=== PATIENT | female | born 1990 | race Hispanic/Latino ===

== ENCOUNTER 2024-07-27 10:01 | Emergency (ER) | payer SELFPAY ==
--- OUTSIDE RECORDS SUMMARY | 2024-07-27 10:05 | XMS REPORT | Continuity of Care Document ---
Author Name Unknown Address [address] [facility] [address] [place] [address] [facility] Address [address] [facility] [address] [place] [address] Care Team Providers Care Tipple Repairer Name Role Phone HIRA RANDHAWA Primary Care Physician Unavailab KATIA Rae Attending Clinician Unavailable KATIA ANDERSEN Attending Clinician Unavailable ANDREA ODELL Attending Clinician Unavailable Andrea Odell DO Attending Clinician [phone] LEONOR IVY Attending Clinician UnavailLeonor Olivo Attending Clinician [phone] LU GARZA Attending Clinician Unavailable Jose Liu MD Attending Clinician [phone] Lu Laura Attending Clinician [phone] Doctor Unassigned, [place] Attending Clinician U GAVI Levy Attending Clinician Unavaila ble Gavi Correia Attending Clinician [phone] PAPI DAVALOS Attending Clinician Unavailable DR ALEKSANDRA MANCILLA Attending Clinician UnavailTOBY Woo Attending Clinician Unavailable KATIA ANDERSEN Admitting Clinician Unavailable ANDREA ODELL Admitting Clinician Unavailable LEONOR IVY Admitting Clinician UnavailPAPI Meza Admitting Clinician Unavailable DR ALEKSANDRA MANCILLA Admitting Clinician UnavailTOBY Woo Admitting Clinician Unavailable Payers Payer Name Policy Type Policy Number Effective Date Expirati on Date Source [facility] [id number] 2022 00:00:00 [id number] 1960 00:00:00 Problems Condition Name Condition Details Condition Category Status Onset Date Resolution Date Last Treatment Date Treating Clinician Comments Source No known active problems No known active problems Disease [facility] Allergies, Adverse Reactions, Alerts Allergy Name Allergy Type Status Severity Reaction(s) Onset Date Inactive Date Treating Clinician Comments Source No Known Allergie s DA Active U 05-30 00:00: 00 [facility] No Known Drug Allergie s DA Active [facility] (LUF/LI V/SA) NO KNOWN ALLERGIE S Drug Class Active [facility] Social History Social Habit Start Date Stop Date Quantity Comments Source Sexual orientation [facility] Exposure to SARS-CoV-2 (event) 2022-04-29 00:00:00 2022-05-09 09:21:00 Not sure [facility] Sex assigned at 1990 00:00:00 1990 00:00:00 [facility] Smoking Status Start Date Stop Date Source Never sm[facility] (LUF/BILLY/SA) Tobacco smoking consumption unknown [facility] Medications Ordered Medication Name Filled Medication Name Start Date Stop Date Current Medication? Ordering Clinician Indication Dosage Frequency Signature (SIG) Comments Components Source HYDROcodone -acetaminop hen (NORCO 5) 5-325 mg tablet 1 tablet 06-16 04:15: 00 06-16 04:12 :00 No 1{tbl} 1 tablet, Oral, ONCE, 1 dose, On Deysi 06/15/24 at 2315, BETO [facility] iopamidol (ISOVUE 370-500 mL) injection 100 mL 06-16 03:45: 00 06-16 03:45 :00 No [id number] 100mL 100 mL, Intravenou s, ONCE, 1 dose, On Wed06/15/24 at 2245, Routine [facility] ketorolac (TORADOL) injection 30 mg 06-16 02:45: 00 06-16 02:12 :00 No 30mg 30 mg, Slow IV Push, ONCE NOW, 1 dose, On Deysi 06/15/24 at 2145, Routine [facility] NaCl 0.9% (NS) bolus infusion 1,000 mL 06-16 02:45: 00 06-16 04:08 :00 No 1000mL at 999 mL/hr, 1,000 mL, IV Infusion, ONCE, 1 dose, On Deysi 06/15/24 at 2145, BETO [facility] ketorolac 10 mg tablet 06-15 00:00: 00 Yes [id number] 9102 10mg Take 1 tablet by mouth every 6 (six) hours as needed for Pain (scale 4-6). [facility] cyclobenzap rine 10 mg tablet 06-15 00:00: 00 Yes [id number] 9102 10mg Take 1 tablet by mouth 2 (two) times daily as needed for Muscle Spasms. [facility] azithromyci n 250 mg tablet 12-22 00:00: 00 Yes [id number] 250mg Take 1 tablet by mouth in the morning. [facility] methylPREDN ISolone (MEDROL, CASH,) 4 mg tablets 12-22 00:00: 00 Yes [id number] Take by mouth SEE-INSTRU CTIONS. follow package directions [facility] ketorolac (TORADOL) injection 30 mg 12-02 00:45: 00 12-02 01:25 :00 No 30mg 30 mg, Intramuscu lar, ONCE, 1 dose, On Wed12/01/23 at 1845, Routine [facility] HYDROcodone -acetaminop hen (NORCO 5) 5-325 mg tablet 1 tablet 12-02 00:30: 00 12-02 01:23 :00 No 1{tbl} 1 tablet, Oral, ONCE, 1 dose, On Wed12/01/23 at 1830, Routine [facility] ibuprofen 600 mg tablet 12-01 00:00: 00 Yes [id number] 3 600mg Take 1 tablet by mouth every 6 (six) hours as needed for Pain (scale 4-6). [facility] traMADoL 50 mg tablet 12-01 00:00: 00 Yes [id number] 50mg Take 1 tablet by mouth every 6 (six) hours as needed for Pain (scale 7-10). Indication s: acute pain [facility] predniSONE 20 mg tablet 05-10 00:00: 00 05-16 04:59 :00 No [id number] 40mg Take 2 tablets by mouth daily for [address] [facility] methocarbam oL (ROBAXIN) tablet 1,000 mg 05-09 16:30: 00 05-09 15:38 :00 No 1000mg 1,000 mg, Oral, ONCE, 1 dose, On 05/09/22 at 1130, BETO [facility] dexamethaso ne sod phos PF injection 10 mg 05-09 16:30: 00 05-09 15:38 :00 No 10mg 10 mg, Intramuscu lar, ONCE, 1 dose, On 05/09/22 at 1130, [address] [facility] ketorolac (TORADOL) injection 60 mg 05-09 16:30: 00 05-09 15:38 :00 No 60mg 60 mg, Intramuscu lar, ONCE, 1 dose, On 05/09/22 at 1130, BETO [facility] ibuprofen 800 mg tablet 05-09 00:00: 00 Yes [id number] 800mg Take 1 tablet by mouth every 8 (eight) hours as needed for Pain (scale 4-6). [facility] methocarbam oL 750 mg tablet 05-09 00:00: 00 Yes [id number] 750mg Take 1 tablet by mouth 4 (four) times daily as needed for Other (muscle spasm). [facility] ketorolac (TORADOL) injection 30 mg 03-04 05:00: 00 03-05 04:59 :00 No 30mg 30 mg, Intramuscu lar, Q6H, 4 doses, First dose on Wed03/04/22 at 0000, Last dose on Wed03/04/22 at 1800, Routine [facility] HYDROcodone -acetaminop hen (NORCO 5) 5-325 mg tablet 1 tablet 03-04 01:00: 00 03-04 00:16 :00 No 1{tbl} 1 tablet, Oral, ONCE, 1 dose, On Wed03/03/22 at 2000, BETO [facility] naproxen 500 mg tablet 03-03 00:00: 00 Yes [id number] 500mg Take 1 tablet by mouth every 12 (twelve) hours as needed for Pain (scale 4-6). [facility] traMADoL-ac etaminophen (ULTRACET) 37.5-325 mg per tablet 03-03 00:00: 00 03-11 04:59 :00 No [id number] 1{tbl} Take 1 tablet by mouth every 6 (six) hours as needed for Pain for up to 7 days. Indication s: acute pain [facility] ibuprofen 800 mg tablet 07-25 00:00: 00 Yes 800mg Take 1 tablet by mouth every 8 (eight) hours as needed for Temp > 38.5 C (PAIN). [facility] amoxicillin 500 mg capsule 07-25 00:00: 00 Yes 500mg Take 1 capsule by mouth 3 (three) times daily. [facility] neomycin-po lymyxin-hyd rocortisone 3.5-10,000- 1 mg/mL-unit/ mL-% otic susp 2-15 00:00: 00 Yes 3[drp] Place 3 Drops in left ear 4 (four) times daily. [facility] traMADOL (ULTRAM) 50 mg tablet 01-06 00:00: 00 Yes 50mg Take 1 tablet by mouth every 6 (six) hours as needed for Pain (scale 4-6). [facility] amoxicillin 875 MG / clavulanate 125 MG Oral Tablet amoxicillin 875 MG / clavulanate 125 MG Oral Tablet Yes [address] [facility] (LUF/LI V/SA) azithromyci n 250 mg tablet azithromyci n 250 mg tablet Yes [address] [facility] (LUF/LI V/SA) bromphenira mine maleate 0.4 MG/ML / dextrometho rphan hydrobromid e 2 MG/ML / pseudoephed rine hydrochlori de 6 MG/ML Oral Solution bromphenira mine maleate 0.4 MG/ML / dextrometho rphan hydrobromid e 2 MG/ML / pseudoephed rine hydrochlori de 6 MG/ML Oral Solution Yes 7.5mL Q5.00H [facility] (LUF/LI V/SA) prednisone 10 mg tablets in a dose pack prednisone 10 mg tablets in a dose pack Yes [address] [facility] (LUF/LI V/SA) Vital Signs Vital Name Observation Time Observation Value Comments S ource Systolic blood pressure 2024-06-16 04:15:00 161 mm[Hg] [facility] Diastolic blood pressure 2024-06-16 04:15:00 99 mm[Hg] [facility] Heart rate 2024-06-16 04:15:00 89 /min [facility] Oxygen saturation in Arterial blood by Pulse oximetry 2024-06-16 04:15:00 98 /min [facility] Body temperature 2024-06-16 03:32:00 36.89 Sanna [facility] Respiratory rate 2024-06-16 03:32:00 16 /min [facility] Body height 2024-06-16 01:12:00 157.5 cm [facility] Body weight 2024-06-16 01:12:00 104.327 kg [facility] BMI 2024-06-16 01:12:00 42.07 kg/m2 [facility] Systolic blood pressure 2023-12-22 22:00:00 167 mm[Hg] [facility] Diastolic blood pressure 2023-12-22 22:00:00 90 mm[Hg] [facility] Heart rate 2023-12-22 22:00:00 105 /min [facility] Body temperature 2023-12-22 22:00:00 37.11 Sanna [facility] Respiratory rate 2023-12-22 22:00:00 18 /min [facility] Body height 2023-12-22 22:00:00 157.5 cm [facility] Body weight 2023-12-22 22:00:00 106.595 kg [facility] BMI 2023-12-22 22:00:00 42.98 kg/m2 [facility] Oxygen saturation in Arterial blood by Pulse oximetry 2023-12-22 22:00:00 100 /min [facility] Systolic blood pressure 2023-12-02 01:59:37 142 mm[Hg] [facility] Diastolic blood pressure 2023-12-02 01:59:37 94 mm[Hg] [facility] Heart rate 2023-12-02 01:59:37 104 /min [facility] Body temperature 2023-12-02 01:59:37 37 Sanna [facility] Respiratory rate 2023-12-02 01:59:37 16 /min [facility] Oxygen saturation in Arterial blood by Pulse oximetry 2023-12-02 01:59:37 99 /min [facility] Body height 2023-12-01 23:07:00 157.5 cm [facility] Body weight 2023-12-01 23:07:00 107.729 kg [facility] BMI 2023-12-01 23:07:00 43.44 kg/m2 [facility] Systolic blood pressure 2022-05-09 14:22:00 157 mm[Hg] [facility] Diastolic blood pressure 2022-05-09 14:22:00 99 mm[Hg] [facility] Heart rate 2022-05-09 14:22:00 97 /min [facility] Body temperature 2022-05-09 14:22:00 36.94 Sanna [facility] Respiratory rate 2022-05-09 14:22:00 18 /min [facility] Body height 2022-05-09 14:22:00 160 cm [facility] Body weight 2022-05-09 14:22:00 104.327 kg [facility] BMI 2022-05-09 14:22:00 40.74 kg/m2 [facility] Oxygen saturation in Arterial blood by Pulse oximetry 2022-05-09 14:22:00 97 /min [facility] Systolic blood pressure 2022-03-04 00:15:10 138 mm[Hg] [facility] Diastolic blood pressure 2022-03-04 00:15:10 92 mm[Hg] [facility] Heart rate 2022-03-04 00:15:10 107 /min [facility] Respiratory rate 2022-03-04 00:15:10 18 /min [facility] Oxygen saturation in Arterial blood by Pulse oximetry 2022-03-04 00:15:10 98 /min [facility] Body temperature 2022-03-03 23:40:00 37.61 Sanna [facility] Body height 2022-03-03 23:40:00 160 cm [facility] Body weight 2022-03-03 23:40:00 99.791 kg [facility] BMI 2022-03-03 23:40:00 38.97 kg/m2 [facility] Height 2022-02-03 23:24:00 160.02 CM Weight 2022-02-03 23:24:00 100.69 KG Height 2021-11-11 13:42:00 160.02 CM Weight 2021-11-11 13:42:00 104.32 KG Height 2021-10-12 16:19:00 165.1 CM Weight 2021-10-12 16:19:00 95.25 KG Height 2021-08-17 14:59:00 157.48 CM Weight 2021-08-17 14:59:00 105.6 KG Height 2021-06-12 11:49:00 157.48 CM Weight 2021-06-12 11:49:00 104.32 KG Body Temperature 2022-02-03 23:24:00 99.2 [degF] [facility] (LUF/BILLY/SA) Pulse Rate 2022-02-03 23:24:00 82 /min [facility] S [facility] (LUF/BILLY/SA) Respiratory Rate 2022-02-03 23:24:00 20 /min [facility] (LUF/BILLY/SA) O2% BldC Oximetry 2022-02-03 23:24:00 98 % [facility] (LUF/BILLY/SA) BP Systolic 2022-02-03 23:24:00 163 mm[Hg] [facility] (LUF/BILLY/SA) BP Diastolic 2022-02-03 23:24:00 100 mm[Hg] [facility] (LUF/BILLY/SA) Height 2022-02-03 23:24:00 63 [in_i] [facility] S [facility] (LUF/BILLY/SA) Weight 2022-02-03 23:24:00 222 [lb_av] [facility] (LUF/BILLY/SA) BMI (Body Mass Index) 2022-02-03 23:24:00 39.3 kg/m2 [facility] (LUF/BILLY/SA) Body Temperature 2021-11-11 13:42:00 98.1 [degF] [facility] (LUF/BILLY/SA) Pulse Rate 2021-11-11 13:42:00 90 /min [facility] S t [facility] (LUF/BILLY/SA) Respiratory Rate 2021-11-11 13:42:00 18 /min [facility] (LUF/BILLY/SA) O2% BldC Oximetry 2021-11-11 13:42:00 98 % [facility] (LUF/BILLY/SA) BP Systolic 2021-11-11 13:42:00 147 mm[Hg] [facility] (LUF/BILLY/SA) BP Diastolic 2021-11-11 13:42:00 94 mm[Hg] [facility] (LUF/BILLY/SA) Height 2021-11-11 13:42:00 63 [in_i] [facility] (LUF/BILLY/SA) Weight 2021-11-11 13:42:00 104.32 kg [facility] (LUF/BILLY/SA) BMI (Body Mass Index) 2021-11-11 13:42:00 40.7 kg/m2 [facility] (LUF/BILLY/SA) Body Temperature 2021-10-12 16:19:00 98 [degF] [facility] (LUF/BILLY/SA) Pulse Rate 2021-10-12 16:19:00 78 /min [facility] (LUF/BILLY/SA) Respiratory Rate 2021-10-12 16:19:00 18 /min [facility] (LUF/BILLY/SA) O2% BldC Oximetry 2021-10-12 16:19:00 98 % [facility] (LUF/BILLY/SA) Height 2021-10-12 16:19:00 65 [in_i] [facility] (LUF/BILLY/SA) Weight 2021-10-12 16:19:00 210 [lb_av] [facility] (LUF/BILLY/SA) BMI (Body Mass Index) 2021-10-12 16:19:00 34.9 kg/m2 [facility] (LUF/BILLY/SA) Pulse Rate 2021-08-17 16:31:00 73 /min [facility] (LUF/BILLY/SA) Respiratory Rate 2021-08-17 16:31:00 18 /min [facility] (LUF/BILLY/SA) O2% BldC Oximetry 2021-08-17 16:31:00 99 % [facility] (LUF/BILLY/SA) BP Systolic 2021-08-17 16:31:00 122 mm[Hg] [facility] (LUF/BILLY/SA) BP Diastolic 2021-08-17 16:31:00 84 mm[Hg] [facility] (LUF/BILLY/SA) Body Temperature 2021-08-17 14:59:00 98.2 [degF] [facility] (LUF/BILLY/SA) Height 2021-08-17 14:59:00 62 [in_i] [facility] Aida [facility] (LUF/BILLY/SA) Weight 2021-08-17 14:59:00 105.6 kg [facility] (LUF/BILLY/SA) BMI (Body Mass Index) 2021-08-17 14:59:00 42.8 kg/m2 [facility] (LUF/BILLY/SA) Body Temperature 2021-06-12 11:49:00 97.9 [degF] [facility] (F/BILLY/SA) Pulse Rate 2021-06-12 11:49:00 102 /min [facility] (F/BILLY/SA) Respiratory Rate 2021-06-12 11:49:00 20 /min [facility] (F/BILLY/SA) O2% BldC Oximetry 2021-06-12 11:49:00 100 % [facility] (LUF/BILLY/SA) BP Systolic 2021-06-12 11:49:00 129 mm[Hg] [facility] (F/BILLY/SA) BP Diastolic 2021-06-12 11:49:00 93 mm[Hg] [facility] (F/BILLY/SA) Height 2021-06-12 11:49:00 62 [in_i] [facility] Aida [facility] (F/BILLY/SA) Weight 2021-06-12 11:49:00 230 [lb_av] [facility] (F/BILLY/SA) BMI (Body Mass Index) 2021-06-12 11:49:00 42.3 kg/m2 [facility] (F/BILLY/SA) Procedures Procedure Date / Time Performed Performing Clinicia n Source POCT TEST 2024-06-16 02:12:00 Katia Andersen [facility] HEPATIC FUNCTION PANEL (11901) (ALB,T.PRO,BILI T,BU/BC,ALT,AST,ALK PHOS) 2024-06-16 02:09:00 Katia Andersen [facility] BASIC METABOLIC PANEL (NA, K, CL, CO2, GLUCOSE, BUN, CREATININE, CA) 2024-06-16 02:09:00 Katia Andersen [facility] CBC WITH DIFF 2024-06-16 02:09:00 [facility] 2024-06-16 02:09:00 [facility] L[facility] 2023-12-22 22:56:00 Andrea Odell [facility] MAGNESIUM 2023-12-22 22:56:00 Singer [facility] TROPONIN I 2023-12-22 22:56:00 Singer Andrea [facility] COMP. METABOLIC PANEL (13710) 2023-12-22 22:56:00 Singer Andrea [facility] CBC WITH DIFF 2023-12-22 22:56:00 Singer [facility] N-TERMINAL PRO-BNP 2023-12-22 22:56:00 Singer [facility] CONSENT/REFUSAL FOR DIAGNOSIS AND TREATMENT 2023-12-22 21:52:05 Doctor Unassigned, [place] [facility] POCT TEST 2023-12-02 01:22:00 Chris Ivy [facility] ASSIGNMENT OF BENEFITS 2023-12-02 00:37:04 Docto r Unassigned, [place] [facility] XR KNEE <3 VW RIGHT 2023-12-02 00:37:00 Chris Ivy [facility] CONSENT/REFUSAL FOR DIAGNOSIS AND TREATMENT 2023-12-01 22:58:09 Doctor Unassigned, [place] [facility] CONSENT/REFUSAL FOR DIAGNOSIS AND TREATMENT 2022-05-09 14:04:54 Doctor Unassigned, [place] [facility] NOTICE OF PRIVACY PRACTICES 2022-03-03 23:32:43 Doctor Unassigned, [place] [facility] CONSENT/REFUSAL FOR DIAGNOSIS AND TREATMENT 2022-03-03 23:32:31 Doctor Unassigned, [place] [facility] Encounters Start Date/Time End Date/Time Encounter Type Admission Type Attending [facility] Care Facility Care Department Encounter ID Source 2024-06-15 20:14:00 2024-06-15 23:35:00 Emergency KATIA ROSAS ERICCA [facility] ERT [id number] [facility] 2024-06-15 20:14:00 2024-06-15 23:35:00 Emergency Katia Andersen [facility] [id number] [id number] [facility] 2023-12-22 16:08:00 2023-12-22 18:13:00 Emergency ANDREA AMATO [facility] ERT [id number] [facility] 2023-12-22 16:08:00 2023-12-22 18:13:00 Emergency Andrea Odell [facility] [id number] [id number] [facility] 2023-12-01 17:08:00 2023-12-01 20:10:00 Emergency X LEONOR IVY [facility] ERT [id number] [facility] 2023-12-01 17:08:00 2023-12-01 20:10:00 Emergency Leonor Ivy [facility] [id number] [id number] [facility] 2022-05-09 09:23:00 2022-05-09 11:06:00 Emergency LU DUENAS [facility] ERT [id number] [facility] 2022-05-09 09:23:00 2022-05-09 11:06:00 Emergency Jose Liu Roxanne [facility] [id number] [id number] [id number] [facility] 2022-05-09 00:00:00 2022-05-09 00:00:00 Orders Only Doctor Unassigned, [place] [facility] [id number] [id number] [id number] [facility] 2022-03-03 18:41:00 2022-03-03 19:36:00 [facility] [id number] [facility] 2022-03-03 18:41:00 2022-03-03 19:36:00 [facility] [id number] [id number] [id number] [facility] 2022-02-03 23:10:00 2022-02-04 00:45:00 ACUTE UP RESPIRATOR Y INFECTION UNS 1 [facility] [id number] [facility] (LUF/LI V/SA) 2022-02-03 00:00:00 2022-02-03 00:00:00 Inpatient [facility], [address], [place], [place] [id number] [place] [address] [id number] [facility] (LUF/LI V/SA) 2022-02-03 00:00:00 2022-02-03 00:00:00 Inpatient [facility] N, [address], [place] [address] [facility] [id number] [facility] (LUF/LI V/SA) 2021-11-11 13:29:00 2021-11-11 14:20:00 Emergency 1 ALEKSANDRA MANCILLA [facility] [id number] [facility] (LUF/LI V/SA) 2021-11-11 00:00:00 2021-11-11 00:00:00 Inpatient [facility] [address], [address], [place] [id number] [place] [address] [id number] [facility] (LUF/LI V/SA) 2021-10-12 15:53:00 2021-10-12 17:18:00 STRAIN MUSC FASC TENDON LW BACK INT [facility] Jad, [address], [facility], [id number] [facility] (LUF/LI V/SA) 2021-10-12 00:00:00 2021-10-12 00:00:00 Inpatient [facility] [address], [address], [address] [id number] [facility] (LUF/LI V/SA) 2021-10-12 00:00:00 2021-10-12 00:00:00 Inpatient [facility] [address], [address], [address] [id number] [facility] (LUF/LI V/SA) 2021-10-12 00:00:00 2021-10-12 00:00:00 Inpatient [facility] [address], [address], [address] [id number] [facility] (LUF/LI V/SA) 2021-08-17 14:52:00 2021-08-17 17:00:00 CONTUSION LOWER BACK PELVIS INITIAL E [facility] GINA Jad, [address], [id number] [facility] (LUF/LI V/SA) 2021-08-17 00:00:00 2021-08-17 00:00:00 Inpatient [facility] [address], [address], [address] [id number] [facility] (LUF/LI V/SA) 2021-08-17 00:00:00 2021-08-17 00:00:00 Inpatient [facility] [address], [address], [address] [id number] [facility] (LUF/LI V/SA) 2021-06-12 11:08:00 2021-06-12 16:13:00 CHRONIC SINUSITIS UNSPECIFIE TOBY CLARK [facility] [address], [address], [address] [id number] [facility] (LUF/LI V/SA) 2021-06-12 00:00:00 2021-06-12 00:00:00 Inpatient [facility] [address], [address], [address] [id number] [facility] (LUF/LI V/SA) 2021-06-12 00:00:00 2021-06-12 00:00:00 Inpatient [facility] [address], [address] [place], [address] [id number] [facility] Reyna Ashley l (LUF/LI V/SA) Results Test Description Test Time Test Comments Results Result Co [facility] (ALB,T.PRO,BILI T,BU/BC,ALT,AST,ALK PHOS)2024-06-16 02:52:08* Test Item Value Reference Range Interpretation Comme nts TOTAL BILI (test code = 5840960667) 0.6 mg/dL 0.1-1.1 BILI UNCON (test code = 7078690376) 0.0 mg/dL 0.1-1.1 L BILI CONJ (test code = [id number]) 0.0 mg/dL 0.0-0.3 T PROTEIN (test code = 5300063363) 8.0 g/dL 6.3-8.2 ALBUMIN (test code = 1176862086) 4.2 g/dL 3.5-5.0 ALK PHOS (test code = 0147953923) 72 U/L 34-122 ALTv (test code = 1742-6) 50 U/L 5-35 H AST(SGOT) (test code = 8977125294) 39 U/L 13-40 Lab Interpretation (test cod e = 71436-3) Abnormal [facility] WITH [id number] 02:36:09* Test Item Value Reference Range Interpretation Comme nts WBC (test code = 6690-2) 15.17 4.30-11.10 H RBC (test code = 789-8) 4.46 3.93-5.25 HGB (test code = 718-7) 12.8 g/dL 11.6-15.0 HCT (test code = 4544-3) 39.0 % 35.7-45.2 MCV (test code = 787-2) 87.4 fL 80.6-95.5 MCH (test code = 785-6) 28.7 pg 25.9-32.8 MCHC (test code = 786-4) 32.8 g/dL 31.6-35.1 RDW-SD (test code = 97853-6) 42.1 fL 39.0-49.9 RDW-CV (test code = 788-0) 13.2 % 12.0-15.5 PLT (test code = 777-3) 379 166-358 H MPV (test code = 25608-8) 9.4 fL 9.5-12.9 L NRBC/100 WBC (test code = 6789182790) 0.0 0.0-10.0 NRBC x10^3 (test code = 2312964008) See_Comment [Automated message] The system which generated this result transmitted reference range: 10*3/?L. The reference range was not used to interpret this result as normal/abnormal. GRAN MAT (NEUT) % (test code = 770-8) 70.8 % IMM GRAN % (test code = 3978120797) 0.70 % LYMPH % (test code = 736-9) 21.0 % MONO % (test code = 5905-5) 5.1 % EOS % (test code = 713-8) 1.9 % BASO % (test code = 706-2) 0.5 % GRAN MAT x10^3(ANC) (test code = 0595764499) 10.74 10*3/uL 1.88-7.09 H IMM GRAN x10^3 (test code = 3605425707) 0.11 10*3/uL 0.00-0.06 H LYMPH x10^3 (test code = 731-0) 3.18 10*3/uL 1.32-3.29 MONO x10^3 (test code = 742-7) 0.77 10*3/uL 0.33-0.92 EOS x10^3 (test code = 711-2) 0.29 10*3/uL 0.03-0.39 BASO x10^3 (test code = 704-7) 0.08 10*3/uL 0.01-0.07 H Lab Interpretation (test code = 23569-7) [id number] 02:12:00* Test Item Value Reference Range Interpretation Comme nts POCT PREG (test code = 1605) Negative On board controls acceptable with C Line (test code = 3574) Yes Lab Interpretation (test cod e = 97157-0) [facility]3 VW [id number] 01:59:38Exam: Left knee, 12/01/2023 6:45 PM. Ordering Physician: LEONOR IVY. History: Left knee pain. Technique: Left knee 2 views Technical Quality: Adequate. Comparison: None. Findings: No acute fracture. No dislocation. No joint effusion. No radiopaque foreignbody. ?Unremarkable soft tissue structures. [facility] [id number] 01:22:00* Test Item Value Reference Range Interpretation Comme nts POCT PREG (test code = 1605) Negative On board controls acceptable with C Line (test code = 3574) Yes POCT PREG LOT # (test code = 3575) [id number] POCT PREG TEST DATE ( test code = 3576) 01/30/2025 Lab Interpretation (test cod e = 76087-1) [facility] [id number] 00:16:00* Test Item Value Reference Range Interpretation Comme nts Flu A Screen (test code = FLUA) Negative Negative N EFFECTIVE 2012 - A method change has occurred. A molecular method for Flu testing will replace the current method. Both Flu A and Flu B will be tested and results will continue to be listed as "Negative or Positive". While this method is more specific in the detection of both strains, confirmatory testing is available upon request. ldh Flu B Screen (test code = FLUB) Negative Negative N EFFECTIVE 2012 - A method change has occurred. A molecular method for Flu testing will replace the current method. Both Flu A and Flu B will be tested and results will continue to be listed as "Negative or Positive". While this method is more specific in the detection of both strains, confirmatory testing is available upon request. ldh STLMLXR CHEST 2 PA [id number] 00:14:29 [facility] ([facility]/[place])Name: REKHA MYLES : 1990 Sex: FEXAMINATION: XR CHEST 2 PA LATERALINDICATION: R07.1: CHEST PAIN ON BREATHINGCOMPARISON: June 12, 2021 radiographFINDINGS:TUBES and LINES: None.LUNGS: Normal lung volumes. Lungs are clear. Noconsolidations.PLEURA: No pleural effusion or pneumothorax.HEART AND MEDIASTINUM: The cardiomediastinal silhouette is unremarkable.BONES AND SOFT TISSUES: No acute osseous lesion. Soft tissues areunremarkable.UPPER ABDOMEN: No free air under the diaphragm.IMPRESSION:No acute thoracic radiographic ab normality.This final report was electronically signed by Dr Maribel Holley 02/04/2022 12:08 AMDictated By: MARIBEL HOLLEYDate: 02/04/2022 00:08STLMLXR LUMBAR SPINE (AP/LATERAL)2021-08-17 16:43:37 [facility] ([facility]/)Name: REKHA MYLES : 1990 Sex: FLumbar Spine Radiographs: multiple viewsHISTORY: [id number]: Traumatic [id number] PARISON: None available.DISCUSSION:There are five non-rib bearing lumbar vertebral bodies.The alignment of the spine is within normal limits.No displaced fracture or compression deformity is identified.Disc Spaces:The disc spaces are well maintained.Facets:The facet joints are unremarkable.IMPRESSION:No acute radiographic abnormality.If symptoms persist or progress, please consider followup studyor furtherevaluation with MRI without IV contrast.This final report was electronically signed by Darwin Shi 08/17/2021 4:38 PMDictated By: DARWIN SHIDate: 08/17/2021 16:38STLMLPREGNANCY TEST, Urine Qualitative 2021-08-17 15:21:00* Test Item Value Reference Range Interpretation Comme nts (Urine) (test code = PREGU) Negative STLMLCORONAVIRUS 2019 CEPHEID [id number] 15:15:00* Test Item Value Reference Range Interpretation Comme nts FT (test code = COVID) Negative (qualifier value) The Cephied SARS-CoV -2 reagent is for in vitro use under FDA Emergency Use Authorization only. For questions regarding your test results, please contact the Coronavirus Call Center at [phone]. IN-HOUSE TESTINGSTLMLXR CHEST AP/PA 1 [id number] 14:40:37 [facility] ([facility]/[place])Name: REKHA MYLES JUANA : 1990 Sex: FExam: AP portable chestDATE OF EXAM: 06/12/2021 2:12 PMINDICATION: CoughThe lungs are clear. The cardiomediastinal silhouette is within normal limits.The bony thorax shows no significant abnormality.Impression:No active cardiopulmonary disease.This final report was electronically signed by Dr Zbigniew Garcia MD :35 PMDictated By: ZBIGNIEW GARCIADate: 06/12/2021 14:35STLMLURINALYSIS WITH [id number] 14:19:00* Test Item Value Reference Range Interpretation Comme nts Color (test code = UCOLR) Yellow Clarity (test code = UCLAR) Hazy Glucose (test code = UGLUC) NEGATIVE NEGATIVE N Bilirubin (test code = UBILI) NEGATIVE NEGATIVE N Ketones (test code = UKET) NEGATIVE NEGATIVE N Specific [place] (test code = USPGR) >=1.030 1.005-1.030 A Blood (test code = UBLD) TRACE-INTACT NEGATIVE A PH (test code = UPH) 5.5 4.5-8.0 A Protein (test code = UPROT) NEGATIVE NEGATIVE N Urobilinogen (test code = U UROB) 0.2 See_Comment N [Automated message] The system which generated this result transmitted reference range: 0.2. The reference range was not used to interpret this result as normal/abnormal. Nitrite (test code = UNITR) NEGATIVE NEGATIVE N Leukocyte Esterase (test code = ULEUK) NEGATIVE NEGATIVE N WBC (test code = WBCUR) 4-6 0-5 A RBC (test code = RBCUR) 0-3 0-5 A Epithial Cells (test code = U EPI) 5-10 0-10 A Mucous (test code = UMUC) Small None Seen A Bacteria (test code = UBACT) Trace None Seen,Trace N Crystals Urine (test code = URCRYS) Moderate Amorphous Urates None Seen A [id number] 14:07:00* Test Item Value Reference Range Interpretation Comme nts Glucose (test code = GLU) 84 mg/dl 75-110 BUN (test code = BUN) 9.0 mg/dl 6.0-17.0 Creatinine (test code = CREA) 0.6 mg/dl 0.4-1.2 Sodium (test code = NA) 136 mmol/l 137-145 L Potassium (test code = K) 4.4 mmol/l 3.5-5.0 Chloride (test code = CL) 104 mmol/l 98-107 CO2 (test code = CO2) 31 mmol/l 22-30 H Calcium (test code = CALC) 8.7 mg/dl 8.4-10.2 EGFR if (test code = EGFRAA) >60 mL/min/1.73m\\ S\\2 EGFR if Non- (test code = EGFRNA) >60 mL/min/1.73m\\ S\\2 Estimated Glomerular Filtration Rate (eGFR) Reference Intervals Decision Points for 18 years and older and average body mass: >= 60 Does not exclude kidney disease. 30 - 59 Suggests moderate chronic kidney disease and indicates the need for further investigation including assessment of proteinuria and cardiovascular factors. < 30 Usually indicates a need for referral for assessment and management of chronic kidney failure. STLMLPREGNANCY TEST, Urine [id number] 13:49:00* Test Item Value Reference Range Interpretation Comme nts (Urine) (test code = PREGU) Negative STLMLCBC WITH AUTO [id number] 13:20:00* Test Item Value Reference Range Interpretation Comme nts WBC (test code = WBC) 9.25 10\\S\\3/ul 4.80-10.80 RBC (test code = RBC) 4.63 10\\S\\6/ul 4.20-5.40 Hemoglobin (test code = HGB) 13.4 gm/dl 12.0-14.0 Hematocrit (test code = HCT) 40.2 % 37.0-47.0 MCV (test code = MCV) 86.8 fL 81.0-99.0 MCH (test code = MCH) 28.9 pg 27.0-31.0 MCHC (test code = MCHC) 33.3 gm/dl 33.0-37.0 RDW (test code = RDWVC) 13.4 % 11.5-14.5 Platelet (test code = PLT) 329 10\\S\\3/ul 130-400 MPV (test code = MPV) 8.9 fL 7.4-10.4 A "NOT MEASURED" RESULTS ARE DISPLAYED WHEN THE INSTRUMENT HAS A SUPPRESSED OR UNREPORTABLE RESULT. THIS WILL MOST OFTEN HAPPEN WITH THE MPV WHEN THERE IS AN ABNORMAL PLATELET DISTRIBUTION DUE TO A CRITICAL LOW VALUE OR PLATELET CLUMPING. THE RDW MAY BE SUPPRESSED IF THERE ARE MULTIPLE PEAKS PRESENT ON THE RBC HISTOGRAM. IN THIS CASE, A MANUAL REVIEW OF THE SLIDE WILL BE PERFORMED, AND RBC MORPHOLOGY WILL BE NOTED ON THE REPORT. NE% (test code = NE) 69.9 % 42.0-75.0 LY% (test code = LY) 17.3 % 13.0-42.0 MO% (test code = MO) 8.2 % 4.0-14.0 EO% (test code = EO) 3.6 % 1.0-5.0 BA% (test code = BA) 0.5 % 0.0-3.0 IG% (test code = IG%) 0.5 % 0.0-0.4 H STLMLPROCALCITONIN (PCT)2019-05-30 17:56:00* Test Item Value Reference Range Interpretation Comme nts PROCALCITONIN (PCT) (test code = PROCAL) 0.05 ng/ml Concentrati on Interpretation (ng/mL) <0.51 Sepsis is not likely. Local bacterial infection is possible. (LOW RISK for progression to Sepsis) 0.51 - 2.00 Sepsis is possible, but other conditions are known to elevate PCT as well. (MODERATE RISK for progression to Sepsis) > 2.00 Sepsis is likely, unless other causes are known. (HIGH RISK for progression to Severe Sepsis or Septic Shock) 10.00 High likelihood of Severe Sepsis or Septic or higher Shock. *Increased PCT levels may not always be related to systemic bacterial infection.*Low PCT levels do not automatically exclude the presence of bacterial infection.*All results should be interpreted taking into account the patients history. PROCALCITONIN (PCT)2019-05-30 17:56:00* Test Item Value Reference Range Interpretation Comme nts PROCALCITONIN (PCT) (test code = PROCAL) 0.05 ng/ml Concentrati on Interpretation (ng/mL) <0.51 Sepsis is not likely. Local bacterial infection is possible. (LOW RISK for progression to Sepsis) 0.51 - 2.00 Sepsis is possible, but other conditions are known to elevate PCT as well. (MODERATE RISK for progression to Sepsis) > 2.00 Sepsis is likely, unless other causes are known. (HIGH RISK for progression to Severe Sepsis or Septic Shock) 10.00 High likelihood of Severe Sepsis or Septic or higher Shock. *Increased PCT levels may not always be related to systemic bacterial infection.*Low PCT levels do not automatically exclude the presence of bacterial infection.*All results should be interpreted taking into account the patients history. LACTIC [id number] 17:41:00* Test Item Value Reference Range Interpretation Comme nts LACTIC ACID (test code = LACT) 1.6 mmol/L 0.4-1.9 N MONO [id number] 17:33:00* Test Item Value Reference Range Interpretation Comme nts MONO SCREEN (test code = MONO) NEGATIVE NEGATIVE - XR CHEST 2 [id number] 17:31:00FAX: Debra Dejesus NP [place]: St: REG Name: REKHA MYLES [facility] : 1990 Age/S: 28/F Chay[address] Reyes Unit #: [id number] Loc: [place] [address] Phys: Debra Dejesus NP Acct: [id number] DisDate: Status: REG ER PHONE #: [phone] Exam Date: 05/30/2019 1719 FAX #: [phone] Reason: fever EXAMS: CPT CODE: [id number] XR CHEST 2 V 90496 REASON FOR EXAM: fever Exam Order Date: 05/30/20194:35 PM Ordering Ramkarishna: Debra Dejesus NP PROCEDURE: - XR CHEST 2 V COMPARISON: FINDINGS: PA and lateral views of the chest show clear lungs without evidence of consolidation. No evidence of effusion. The heart size is within normal limits. Pulmonary vasculatures are unremarkable. The osseous structures are grossly intact. IMPRESSION: No active disease. Electronically Signed by Ramakrishna Barrientos on05/30/2019 at 1739 Reported and signed by: Yannick Barrientos M.D. CC: Debra Dejesus NP Technologist: Avril Isabel) Trnscstephanie Date/Time/By: 05/30/2019 (8988) : By: Sheba Orig Print D/T: S: 05/30/2019 (6156) PAGE 1 Signed Report- XR CHEST 2 [id number] 17:31:00FAX: Debra Dejesus NP [place]: St: REG Name: REKHA MYLES [facility] : 1990 Age/S: 28/F [address] Unit #: [id number] Loc: [place] [address] Phys: Debra Dejesus NP Acct: [id number] Dis Date: Status: REG ER PHONE #: [phone] Exam Date: 05/30/2019 1719 FAX #: [phone] Reason: fever EXAMS: CPT CODE: [id number] XR CHEST 2 V 23557 REASON FOR EXAM: fever Exam Order Date: 05/30/20194:35 PM Ordering MGladys: Debra Dejesus NP PROCEDURE: - XR CHEST 2 V COMPARISON: FINDINGS: PA and lateral views of the chest show clear lungs without evidence of consolidation. No evidence of effusion. The heart size is within normal limits. Pulmonary vasculatures are unremarkable. The osseous structures are grossly intact. IMPRESSION: No active disease. Electronically Signed by Ramakrishna Barrientos on05/30/2019 at 1731 Reported and signed by: Yannick Barrientos M.D. CC: Debra Dejesus NP Technologist: Avril Espinoza (R) Date/Time/By: 05/30/2019 (1735) : By: Sheba Orig Print D/T: S: 05/30/2019 (7076) PAGE 1 Signed Report- XR CHEST 2 [id number] 17:31:00FAX: Debra Dejesus NP [place]: St: REG Name: REKHA MYLES [facility] : 1990 Age/S: 28/F Chayito Reyes Unit #: [id number] Loc: [place] [address] Phys: Debra Dejesus NP Acct: [id number] DisDate: Status: REG ER PHONE #: [phone] Exam Date: 05/30/2019 1719 FAX #: [phone] Reason: fever EXAMS: CPT CODE: [id number] XR CHEST 2 V 43012 REASON FOR EXAM: fever Exam Order Date: 05/30/2019 4:35 PM Ordering MGladys: Debra Dejesus NP PROCEDURE: - XR CHEST 2 V COMPARISON: FINDINGS: PA and lateral views of the chest show clear lungs without evidence of consolidation. No evidence of effusion. The heart size is within normal limits. Pulmonary vasculatures are unremarkable. The osseous struc tures are grossly intact. IMPRESSION: No active disease. at 1731 Reported and signed by: Yannick Barrientos M.D. CC: Debra Dejesus NP Technologist: Avril Sexton(Mariana) Trnscrd Date/Time/By: 05/30/2019 (8209) : By: JuniVTL Orig Print D/T: S: 05/30/2019 (0806) PAGE 1 Signed ReportPOC LACTIC [id number] 17:18:00* Test Item Value Reference Range Interpretation Comme nts POC LACTIC ACID (test code = POCLAC) 1.51 MMOL/L 0.4-2.2 N POC LACTIC [id number] 17:18:00* Test Item Value Reference Range Interpretation Comme nts POC LACTIC ACID (test code = POCLAC) 1.51 MMOL/L 0.4-2.2 N Notes Date/Time Note Provider Source 2024-06-15 23:34:14 Pt given printed and verbal discharge instructions regarding sciatica, abdominal pain, encouraged hydration, Prescriptions provided Pt verbalized understanding of instructions, pt awake alert oriented, resp reg unlabored, skin w/d, color appropriate for race, moves all ext well,pt encouraged to follow up with pcp. Advised to seek medical attention for new/prolonged/worsening of symptoms. No adverse reaction to meds given in ER noted upon discharge PIV d'cd, dressing to site, catheter in tact. Awake, alert oriented, resp reg unlabored, skin w/d, pt leaving amb with steady gait, in no apparent distress. Mary Navarro RN [facility] 2024-06-15 20:11:02 Started with right flank pain that has radiated to abdomen. Pain started earlier today. Denies blood in urine, complains of pain with urination. Saira Green RN [facility] 2023-12-22 18:12:52 PT D/C home. GCS15, VS stable, no ataxia noted. Given two prescriptions and D/C paperwork. S/S relieved at this time. Pt ambulatory with family at time of discharge. Pt educated on musculoskeletal pain, med usage, follow up care, s/s worsening condition. Pt verbalized understanding. PIV removed. 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 Pain is not reproducible. EKG preformed in triage. NTO Williamson RN [facility] 2023-12-01 20:05:00 Pt given printed and verbal discharge instructions regarding acute pain of left knee, encouraged hydration, Prescriptions provided to preferred pharmacy Discussed ibuprofen and to take with food to avoid GI distress. Discussed tramadol side affects and to avoid driving/operating machinery/or engaging in activities requiring alertness while taking. Pt verbalized understanding of instructions, pt awake alert oriented, resp reg unlabored, skin w/d, color appropriate for race, moves all ext well,pt encouraged to follow up with pcp and/or Ortho Advised to seek medical attention for new/prolonged/worsening of symptoms No adverse reaction to meds given in ER noted upon discharge Awake, alert oriented, resp reg unlabored, skin w/d, pt leaving amb with steady gait, in no apparent distress, TRAINER Lizeth Barrientos RN [facility] 2023-12-01 17:06:49 Pt arrived via private car with c/o left knee pain that started today when she bent over at work. NTO Williamson RN [facility] 2019-05-30 16:37:00 [facility] ([facility]) EMERGENCY PROVIDER REPORT REPORT#:[id number] REPORT STATUS: Signed DATE:05/30/19 TIME: 1636 PATIENT: REKHA MYLES UNIT #: [id number] ROOM/BED: AGE: 28 SEX: F PCP PHYS: No Primary or Family Physician SERVICE AUTHOR: Debra Dejesus NP * ALL edits or amendments must be made on the electronic/computer document * HPI-Sore Throat General Confirmed Patient Yes Patient Type New patient Initial Greet Date/Time 05/30/19 1619 PCP No PCP Presentation Chief Complaint Sore throat Hx Obtained From Patient Onset Occurred Days ago Symptom Duration Since onset, Constant Progression since Onset Gradually worsening Context of Onset No sick contacts Location Pharynx, Tonsil R, Tonsil L Quality Painful, Throbbing Severity: Onset Mild Severity: Current Mild, Pain level 5 out of 10 Associated with Reports: Fever. Denies: Chills, Choking, Cough, Dark urine, Ear pain/ache, Headache, Nausea, Neck pain, Rash, Reduced oral intake, Restricted neck movement , Rhinorrhea, Shortness of breath, Swelling, neck, Swelling, tongue, URI symptoms, Vomiting, Weakness. Associated Other Pt denies other symptoms Exacerbated by Drinking, Eating Relieved by Nothing Context Related History Denies: Diabetes mellitus, Mononucleosis, Prior peritons abscess. Immunization Status General All up to date Recent Healthcare No recent doctor visit, No recent hospitalization Similar Sx Previous No Free Text HPI Notes Free Text HPI Notes 28/f presents with c/o sore throat and fever for the past two days. 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 Denies pmh. Ambulatory to exam room in [facility]. Review of Systems ROS Statements All systems rev neg except as marked. Focused Review of Systems Constitutional Reports: Fever. Denies: Chills, Malaise, Weakness - generalized. Ears/Nose/Throat Reports: Sore throat. Denies: Earache bilat, Nasal congestion. Respiratory Denies: Cough, non-productive, Shortness of breath, Wheezing. GI Denies: Abdominal pain, Diarrhea, Nausea, Vomiting. Musculoskeletal Denies: Back pain, Neck pain. Skin Denies: Rash, Swelling. Neurologic Denies: Change LOC, Generalized weakness, Headache, Lightheaded, Numbness, Syncope, Tingling. Past Medical History - Adult Stated Complaint FEVER Allergies Coded Allergies: No Known Allergies (05/30/19) Home Medications Reported Medications No Known Home Medications Review of Nursing Notes Unavailable at this time Pt reports no significant: Past medical history, Past surgical history, Family history, Social history Smoking status for patients 13 years old or older: Never Smoker Physical Exam Vital Signs Vital Signs First Documented: Result Date Time Pulse Ox 97 / 1633 B/P 167/91 / 1633 B/P Mean 116 /09 1633 O2 Delivery Room air / 1633 Temp 38.9 07/09 1633 Pulse 123 07/09 1633 Resp 18 / 1633 Last Documented: Result Date Time Temp 37.6 07/09 1730 Pulse 110 07/09 1730 Resp 16 07/ 1730 Pulse Ox 97 07/09 1633 B/P 167/91 07/09 1633 B/P Mean 116 07/09 1633 O2 Delivery Room air / 1633 Review of Vital Signs Reviewed Basic Physical Exam Basic PE HEAD: Atraumatic/NC, EYES: PERRL, conj clear, EXT: No gross abnormality , SKIN: No rashes, warm/dry, NEURO: alert oriented, NEURO: gross movement NL, PSYCH: NL thought content Focused PE General/Const General/Const Awake, Alert, Well appearing Ears/Nose/Throat Ears/Nose/Throat Airway patent, Mucous membranes moist, No peritonsillar abscess, No pooling of secretions, No trismus Pharynx/Tonsils/Uvula Pharyngeal erythema, Tonsillar erythema R, Tonsillar erythema L, Tonsillar exudate R, Tonsillar exudate L, Tonsillar swelling R, Tonsillar swelling L. Negative: Peritonsil abscess R, Peritonsil abscess L, Trismus present. MS Neck Neck Supple, No meningismus, Full range of motion, No swelling, Non-tender, No masses Resp/Chest Respiratory/Chest Breath sounds NL, Breath sounds = bilat, No respiratory distress, No rales, No rhonchi, No wheezing, No stridor Cardiovascular Cardiovascular Heart rate NL, Regular rhythm, Heart sounds NL, Peripheral circulation NL Abdomen/GI Abdomen/GI Soft, Non-tender, No guarding, No rebound Lymphatic Adenopathy Anterior cervical bilat. Neurologic Neurologic Oriented X3, Speech NL, No motor deficits, No sensory deficits Interpretation Diagnostics Lab Results Interpretation Results Laboratory Tests: 05/30 05/30 05/30 1716 1646 1645 Blood Gas ABG Lactic Acid (0.4 - 2.2 MMOL/L) 1.51 Chemistry Lactic Acid (0.4 - 1.9 mmol/L) 1.6 Procalcitonin (ng/ml) 0.05 Serology Monoscreen (NEGATIVE) NEGATIVE Microbiology: Date/Time Procedure - Status Source Growth 05/30 1640 Blood Culture - RECD BLOOD 05/30 1640 Blood Culture - RECD BLOOD 05/30 1633 Group A Streptococcus Screen (HORACE) - COMP THROAT 05/30 1633 Influenza Virus Type B Antigen - COMP NASAL 05/30 1633 Influenza Virus Type A Antigen - COMP NASAL Recent Impressions: RADIOLOGY - XR CHEST 2 V 05/30 1710 Report Impression - Status: SIGNED Entered: 05/30/2019 1835 IMPRESSION: No active disease. Impression By: Sheba Barrientos M.D. Lab Imaging Statement Laboratory radiographic studies reviewed and considered in the medical decision-making. Point of Care Testing Micro Interpretation Monospot negative, Influenza rapid - neg, Strep rapid - pos Pulse Oximetry Pulse Ox % 97 On: Room air Interpretation Interpreted by me, Pulse oximetry normal Time 1633 Re-Evaluation MDM Free Text MDM Notes Free Text MDM Notes Informed patient of lab/imaging findings. Educated on diagnoses, supportive measures, return precautions and instructions for PCP Fu. Community resources provided for FU. Patient verbalizes understanding and agrees with plan of care. Patient is nontoxic appearing, afebrile, tolerating PO intake with no signs of distress upon dispo. ED Course Medication(s) Ordered Medication(s) Ordered: Anti-Infective Agents Sig/Isma Start time Last Medication Dose Route Stop Time Status Admin Ceftriaxone Sodium 1,000 MG X1ED 05/30 1645 DCD 05/30 Sodium Chloride 10 ML IV 06/13 1644 1646 Vancomycin HCl 1,000 MG X1ED STA 05/30 1634 DC 05/30 Sodium Chloride 250 ML IV 05/30 1733 1651 Central Nervous System Agents Sig/Isma Start time Last Medication Dose Route Stop Time Status Admin Acetaminophen 1,000 MG X1ED STA 05/30 1634 DC / PO 05/30 1635 1654 Electrolytic, Caloric, And Nicole Sig/Isma Start time Last Medication Dose Route Stop Time Status Admin Sodium Chloride 1,000 ML X1ED STA 05/30 1634 DC 05/30 IV 05/30 1733 1651 Patient Discharge Departure Vital Signs/Condition Vital Signs First Documented: Result Date Time Pulse Ox 97 07/09 1633 B/P 167/91 07/09 1633 B/P Mean 116 07/09 1633 O2 Delivery Room air / 1633 Temp 38.9 07/09 1633 Pulse 123 07/09 1633 Resp 18 / 1633 Last Documented: Result Date Time Temp 37.6 07/09 1730 Pulse 110 07/09 1730 Resp 16 07/09 1730 Pulse Ox 97 07/ 1633 B/P 167/91 07/09 1633 B/P Mean 116 /09 1633 O2 Delivery Room air / 1633 All vital signs available at the time of this entry have been reviewed. Condition Improved, Stable Clinical Impression Clinical Impression Primary Impression: Fever Secondary Impressions: Strep pharyngitis Disposition Decision Discharge )( Discharged to Home Yes )( Time 1746 )( Date 05/30/19 Discharge/Care Plan Counseled Regarding Diagnosis, Lab results, Imaging studies, Prescriptions, Need for follow-up, When to return to ED Prescriptions amoxicillin Prescriptions Reviewed Risks, Benefits, Alternative treatment Discharge Note I have spoken with the patient and/or caregivers. I have explained the patient's condition, diagnoses and treatment plan based on the information available to me at this time. I have answered the patient's and/or caregiver's questions and addressed any concerns. The patient and/or caregivers have as good an understanding of the patient's diagnosis, condition and treatment plan as can be expected at this point. The vital signs have been stable. The patient's condition is stable and appropriate for discharge from the emergency department. The patient will pursue further outpatient evaluation with the primary care physician or other designated or consulting physician as outlined in the discharge instructions. The patient and/or caregivers are agreeable to this plan of care and follow-up instructions have been explained in detail. The patient and/or caregivers have received these instructions in written format and have expressed an understanding of the discharge instructions. The patient and/or caregivers are aware that any significant change in condition or worsening of symptoms should prompt an immediate return to this or the closest emergency department or a call to 911. Quality Measures BP F/U for HTN Referred for BP f/u < 4wk Current Medications Attest: Medication review Smoking Cessation Screened, non user at 1903 RPT #:[id number] END OF REPORT [facility] 2019-05-30 16:37:00 [facility] ([facility]) EMERGENCY PROVIDER REPORT REPORT#:[id number] REPORT STATUS: Signed DATE:05/30/19 TIME: 1636 PATIENT: REKHA MYLES UNIT #: [id number] ROOM/BED: AGE: 28 SEX: F PCP PHYS: No Primary or Family Physician SERVICE AUTHOR: Debra Dejesus NP * ALL edits or amendments must be made on the electronic/computer document * Debra Dejesus 05/30/19 1637: HPI-Sore Throat General Confirmed Patient Yes Patient Type New patient PCP No PCP Presentation Chief Complaint Sore throat Hx Obtained From Patient Onset Occurred Days ago Symptom Duration Since onset, Constant Progression since Onset Gradually worsening Context of Onset No sick contacts Location Pharynx, Tonsil R, Tonsil L Quality Painful, Throbbing Severity: Onset Mild Severity: Current Mild, Pain level 5 out of 10 Associated with Reports: Fever. Denies: Chills, Choking, Cough, Dark urine, Ear pain/ache, Headache, Nausea, Neck pain, Rash, Reduced oral intake, Restricted neck movement , Rhinorrhea, Shortness of breath, Swelling, neck, Swelling, tongue, URI symptoms, Vomiting, Weakness. Associated Other Pt denies other symptoms Exacerbated by Drinking, Eating Relieved by Nothing Context Related History Denies: Diabetes mellitus, Mononucleosis, Prior peritons abscess. Immunization Status General All up to date Recent Healthcare No recent doctor visit, No recent hospitalization Similar Sx Previous No Free Text HPI Notes Free Text HPI Notes 28/f presents with c/o sore throat and fever for the past two days. 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 Ambulatory to exam room in [facility]. Review of Systems ROS Statements All systems rev neg except as marked. Focused Review of Systems Constitutional Reports: Fever. Denies: Chills, Malaise, Weakness - generalized. Ears/Nose/Throat Reports: Sore throat. Denies: Earache bilat, Nasal congestion. Respiratory Denies: Cough, non-productive, Shortness of breath, Wheezing. GI Denies: Abdominal pain, Diarrhea, Nausea, Vomiting. Musculoskeletal Denies: Back pain, Neck pain. Skin Denies: Rash, Swelling. Neurologic Denies: Change LOC, Generalized weakness, Headache, Lightheaded, Numbness, Syncope, Tingling. Past Medical History - Adult Stated Complaint FEVER Allergies Coded Allergies: No Known Allergies (05/30/19) Home Medications Reported Medications No Known Home Medications Review of Nursing Notes Unavailable at this time Pt reports no significant: Past medical history, Past surgical history, Family history, Social history Smoking status for patients 13 years old or older: Never Smoker Physical Exam Vital Signs Vital Signs First Documented: Result Date Time Pulse Ox 97 05/30 1633 B/P 167/91 05/30 1633 B/P Mean 116 05/30 1633 O2 Delivery Room air 05/30 1633 Temp 38.9 05/30 1633 Pulse 123 05/30 1633 Resp 18 05/30 1633 Last Documented: Result Date Time Temp 37.6 05/30 1730 Pulse 110 05/30 1730 Resp 16 05/30 1730 Pulse Ox 97 05/30 1633 B/P 167/91 05/30 1633 B/P Mean 116 05/30 1633 O2 Delivery Room air 05/30 1633 Review of Vital Signs Reviewed Basic Physical Exam Basic PE HEAD: Atraumatic/NC, EYES: PERRL, conj clear, EXT: No gross abnormality , SKIN: No rashes, warm/dry, NEURO: alert oriented, NEURO: gross movement NL, PSYCH: NL thought content Focused PE General/Const General/Const Awake, Alert, Well appearing Ears/Nose/Throat Ears/Nose/Throat Airway patent, Mucous membranes moist, No peritonsillar abscess, No pooling of secretions, No trismus Pharynx/Tonsils/Uvula Pharyngeal erythema, Tonsillar erythema R, Tonsillar erythema L, Tonsillar exudate R, Tonsillar exudate L, Tonsillar swelling R, Tonsillar swelling L. Negative: Peritonsil abscess R, Peritonsil abscess L, Trismus present. MS Neck Neck Supple, No meningismus, Full range of motion, No swelling, Non-tender, No masses Resp/Chest Respiratory/Chest Breath sounds NL, Breath sounds = bilat, No respiratory distress, No rales, No rhonchi, No wheezing, No stridor Cardiovascular Cardiovascular Heart rate NL, Regular rhythm, Heart sounds NL, Peripheral circulation NL Abdomen/GI Abdomen/GI Soft, Non-tender, No guarding, No rebound Lymphatic Adenopathy Anterior cervical bilat. Neurologic Neurologic Oriented X3, Speech NL, No motor deficits, No sensory deficits Interpretation Diagnostics Lab Results Interpretation Results Laboratory Tests: 05/30 05/30 05/30 1716 1646 1645 Blood Gas ABG Lactic Acid (0.4 - 2.2 MMOL/L) 1.51 Chemistry Lactic Acid (0.4 - 1.9 mmol/L) 1.6 Procalcitonin (ng/ml) 0.05 Serology Monoscreen (NEGATIVE) NEGATIVE Microbiology: Date/Time Procedure - Status Source Growth 05/30 1640 Blood Culture - RES BLOOD 05/30 1640 Blood Culture - RES BLOOD 05/30 1633 Group A Streptococcus Screen ([facility]) - COMP THROAT 05/30 1633 Influenza Virus Type B Antigen - COMP NASAL 05/30 1633 Influenza Virus Type A Antigen - COMP NASAL Recent Impressions: RADIOLOGY - XR CHEST 2 V 05/30 1710 Report Impression - Status: SIGNED Entered: 05/30/2019 1735 IMPRESSION: No active disease. Impression By: Sheba Barrientos M.D. Lab Imaging Statement Laboratory radiographic studies reviewed and considered in the medical decision-making. Point of Care Testing Micro Interpretation Monospot negative, Influenza rapid - neg, Strep rapid - pos Pulse Oximetry Pulse Ox % 97 On: Room air Interpretation Interpreted by me, Pulse oximetry normal Time 1633 Re-Evaluation MDM Free Text MDM Notes Free Text MDM Notes Informed patient of lab/imaging findings. Educated on diagnoses, supportive measures, return precautions and instructions for PCP Fu. Community resources provided for FU. Patient verbalizes understanding and agrees with plan of care. Patient is nontoxic appearing, afebrile, tolerating PO intake with no signs of distress upon dispo. ED Course Medication(s) Ordered Medication(s) Ordered: Anti-Infective Agents Sig/Isma Start time Last Medication Dose Route Stop Time Status Admin Ceftriaxone Sodium 1,000 MG X1ED 05/30 1645 DCD 05/30 Sodium Chloride 10 ML IV 06/13 1644 1646 Vancomycin HCl 1,000 MG X1ED STA 05/30 1634 DC 05/30 Sodium Chloride 250 ML IV 05/30 1733 1651 Central Nervous System Agents Sig/Isma Start time Last Medication Dose Route Stop Time Status Admin Acetaminophen 1,000 MG X1ED STA 05/30 1634 DC / PO 05/30 1635 1654 Electrolytic, Caloric, And Nicole Sig/Isma Start time Last Medication Dose Route Stop Time Status Admin Sodium Chloride 1,000 ML X1ED STA 05/30 1634 DC 05/30 IV 05/30 1733 1651 Patient Discharge Departure Vital Signs/Condition Vital Signs First Documented: Result Date Time Pulse Ox 97 /09 1633 B/P 167/91 07/09 1633 B/P Mean 116 07/09 1633 O2 Delivery Room air / 1633 Temp 38.9 07/09 1633 Pulse 123 07/09 1633 Resp 18 / 1633 Last Documented: Result Date Time Temp 37.6 07/09 1730 Pulse 110 07/09 1730 Resp 16 07/09 1730 Pulse Ox 97 07/ 1633 B/P 167/91 07/09 1633 B/P Mean 116 /09 1633 O2 Delivery Room air 05/30 1633 All vital signs available at the time of this entry have been reviewed. Condition Improved, Stable Clinical Impression Clinical Impression Primary Impression: Fever Secondary Impressions: Strep pharyngitis Disposition Decision Discharge )( Discharged to Home Yes )( Time 1746 )( Date 05/30/19 Discharge/Care Plan Counseled Regarding Diagnosis, Lab results, Imaging studies, Prescriptions, Need for follow-up, When to return to ED Prescriptions amoxicillin Prescriptions Reviewed Risks, Benefits, Alternative treatment Discharge Note I have spoken with the patient and/or caregivers. I have explained the patient's condition, diagnoses and treatment plan based on the information available to me at this time. I have answered the patient's and/or caregiver's questions and addressed any concerns. The patient and/or caregivers have as good an understanding of the patient's diagnosis, condition and treatment plan as can be expected at this point. The vital signs have been stable. The patient's condition is stable and appropriate for discharge from the emergency department. The patient will pursue further outpatient evaluation with the primary care physician or other designated or consulting physician as outlined in the discharge instructions. The patient and/or caregivers are agreeable to this plan of care and follow-up instructions have been explained in detail. The patient and/or caregivers have received these instructions in written format and have expressed an understanding of the discharge instructions. The patient and/or caregivers are aware that any significant change in condition or worsening of symptoms should prompt an immediate return to this or the closest emergency department or a call to 911. Quality Measures BP F/U for HTN Referred for BP f/u < 4wk Current Medications Attest: Medication review Smoking Cessation Screened, non user Josesito Dodson 06/01/19 1135: HPI-Sore Throat General Initial Greet Date/Time 05/30/19 1619 Physical Exam Vital Signs Vital Signs Interpretation Diagnostics Lab Results Interpretation Results Patient Discharge Departure Vital Signs/Condition Vital Signs Supervising Physician Note MidLv Saw Pt Alone I have reviewed the PA/GRIDDLE COOK's note and plan of care. I was available for consultation as needed at all times during the patient's visit in the emergency department. I agree with the clinical impression, plan and disposition. at 1903 at 1135 RPT #:[id number] END OF REPORT [facility]
[2024-07-27 11:25] LABS: SARS-CoV-2 Antigen CONTROL BLUE LINE VIS/BG OK; SARS-CoV-2 Antigen Rapid Res Negative (Negative)
--- NOTE | 2024-07-27 12:29 | ER ---
Nurse's Notes [facility] Name: Sita Simpson Age: 33 yrs Sex: Female : 1990 Arrival Date: 07/27/2024 Time: 10:01 Bed 17 Private MD: Diagnosis: Upper respiratory infection, viral syndrome Presentation: 07/27 10:20 Chief complaint: Patient states: Pt states began having congestion, cough, sore throat dd2 and runny nose x3 days ago. Coronavirus screen: congestion, cough unrelated to allergies, runny nose, sore throat. Ebola Screen: No symptoms or risks identified at this time. Initial Sepsis Screen: Does the patient meet any 2 criteria? No. Patient's initial sepsis screen is negative. Does the patient have a suspected source of infection? No. Patient's initial sepsis screen is negative. Risk Assessment: Do you want to hurt yourself or someone else? Patient reports no desire to harm self or others. Onset of symptoms is unknown. 10:20 Method Of Arrival: Ambulatory dd2 10:20 Acuity: NAKITA 4 dd2 Triage Assessment: 10:23 General: Appears in no apparent distress. Behavior is calm, cooperative, appropriate dd2 for age. Pain: Complains of pain in throat, ears. 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 - Infectious Disease History:: Denies. - Social history:: Smoking status: Patient denies any tobacco usage or history of. Screenin:13 [facility] ED Fall Risk Assessment (Adult) History of falling in the last 3 months, ld1 including since admission No falls in past 3 months (0 pts) Confusion or Disorientation No (0 pts) Intoxicated or Sedated No (0 pts) Impaired Gait No (0 pts) Mobility Assist Device Used No (0 pt) Altered Elimination No (0 pt) Score/Fall Risk Level 0 - 2 = Low Risk Oriented to surroundings, Maintained a safe environment, Educated pt \T\ family on fall prevention, incl call for assistance when getting out of bed, Assessed \T\ reinforced patient's understanding of fall precautions, Provided non-skid footwear, Hourly rounding (assess needs \T\ fall precautionary measures) done, Used ambulatory aids as needed (educated on \T\ assisted with), Used gait belt as appropriate. Abuse screen: Denies threats or abuse. Denies injuries from another. Nutritional screening: No deficits noted. Tuberculosis screening: No symptoms or risk factors identified. Assessment: 11:12 General: Appears in no apparent distress. comfortable, Behavior is calm, cooperative, ld1 appropriate for age. Pain: Denies pain. Neuro: Level of Consciousness is awake, alert, obeys commands, Oriented to person, place, time, situation, Appropriate for age. Cardiovascular: Capillary refill < 3 seconds Patient's skin is warm and dry. Respiratory: Airway is patent Respiratory effort is even, unlabored. GI: Abdomen is flat, non-distended. : No signs and/or symptoms were reported regarding the genitourinary system. EENT: No signs and/or symptoms were reported regarding the EENT system. Derm: No signs and/or symptoms reported regarding the dermatologic system. Musculoskeletal: No signs and/or symptoms reported regarding the musculoskeletal system. 12:16 Reassessment: Patient appears in no apparent distress at this time. No changes from ld1 previously documented assessment. Patient and/or family updated on plan of care and expected duration. Pain level reassessed. Patient is alert, oriented x 3, equal unlabored respirations, skin warm/dry/pink. Vital Signs: 10:20 BP 149 / 101; Pulse 108; Resp 16; Temp 98.7(O); Pulse Ox 100% ; Weight 102.06 kg; dd2 Height 5 ft. 2 in. ; 11:12 BP 141 / 93; Pulse 96; Resp 18; Pulse Ox 99% on R/A; ld1 12:16 BP 139 / 76; Pulse 99; Resp 18; Pulse Ox 100% on R/A; ld1 10:20 Body Mass Index 41.15 (102.06 kg, 157.48 cm) dd2 ED Course: 10:04 Patient arrived in ED. im 10:08 Marisa Goldsmith MD is Attending Physician. sp3 10:23 Triage completed. dd2 10:23 Arm band placed on right wrist. Patient placed in an exam room, on a stretcher, on dd2 pulse oximetry, Patient notified of wait time. 10:28 Hansa Bronson, RN is Primary Nurse. ld1 11:13 Patient has correct armband on for positive identification. Placed in gown. Bed in low ld1 position. Call light in reach. Side rails up X2. court monitor on. Pulse ox on. NIBP on. Door closed. Noise minimized. 11:13 No provider procedures requiring assistance completed. ld1 12:38 Patient did not have IV access during this emergency room visit. ld1 13:06 CXR XRAY In Process Unspecified. EDMS Administered Medications: No medications were administered Medication: 11:13 VIS not applicable for this client. ld1 Outcome: 12:28 Discharge ordered by . sp3 12:38 Discharged to home ambulatory, ld1 12:38 Condition: stable 12:38 Discharge instructions given to patient, Instructed on discharge instructions, follow up and referral plans. medication usage, Demonstrated understanding of instructions, follow-up care, medications, Prescriptions given X 2, 12:38 Patient left the ED. ld1 Signatures: Dispatcher [employer] EDMS Hansa Bronson, RN RN ld1 Marisa Goldsmith MD MD sp3 Shira Dacosta DIANA RN RN dd2
--- NOTE | 2024-07-27 12:29 | EDPHYS ---
Physician Documentation [facility] Name: Sita Simpson Age: 33 yrs Sex: Female : 1990 Arrival Date: 07/27/2024 Time: 10:01 Bed 17 Private MD: ED Physician Marisa Goldsmith HPI: 07/27 11:11 This 33 yrs old Female presents to ER via Ambulatory with complaints of Flu sp3 Symptoms. 11:11 33-year-old female with no significant past medical history presents with chief sp3 complaint fever, generalized weakness, malaise, cough, congestion for the last 2 to 3 days. Temperature last night subjectively. She denies shortness of breath, chest pain, abdominal pain, syncope, neurological complaints, rash, or any other signs or symptoms on ROS at this time. Possible sick contacts noted at work.. 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 - Infectious Disease History:: Denies. - Social history:: Smoking status: Patient denies any tobacco usage or history of. ROS: 11:11 Constitutional: Negative for fever, chills, and weight loss, Eyes: Negative for injury, sp3 pain, redness, and discharge, Neck: Negative for injury, pain, and swelling, Cardiovascular: Negative for chest pain, palpitations, and edema, Abdomen/GI: Negative for abdominal pain, nausea, vomiting, diarrhea, and constipation, Back: Negative for injury and pain, MS/Extremity: Negative for injury and deformity, Skin: Negative for injury, rash, and discoloration, Neuro: Negative for headache, weakness, numbness, tingling, and seizure, Psych: Negative for depression, anxiety, suicide ideation, homicidal ideation, and hallucinations, Allergy/Immunology: Negative for hives, rash, and allergies, Endocrine: Negative for neck swelling, polydipsia, polyuria, polyphagia, and marked weight changes, 11:11 All other systems are negative, Exam: 11:12 Constitutional: This is a well developed, well nourished patient who is awake, alert, sp3 and in no acute distress. Head/Face: Normocephalic, atraumatic. Eyes: Pupils equal round and reactive to light, extra-ocular motions intact. Lids and lashes normal. Conjunctiva and sclera are non-icteric and not injected. Cornea within normal limits. Periorbital areas with no swelling, redness, or edema. Neck: Trachea midline, no thyromegaly or masses palpated, and no cervical lymphadenopathy. Supple, full range of motion without nuchal rigidity, or vertebral point tenderness. No Meningismus. Chest/axilla: Normal chest wall appearance and motion. Nontender with no deformity. No lesions are appreciated. Cardiovascular: Regular rate and rhythm with a normal S1 and S2. No gallops, murmurs, or rubs. Normal PMI, no JVD. No pulse deficits. Respiratory: Lungs have equal breath sounds bilaterally, clear to auscultation and percussion. No rales, rhonchi or wheezes noted. No increased work of breathing, no retractions or nasal flaring. Abdomen/GI: Soft, non-tender, with normal bowel sounds. No distension or tympany. No guarding or rebound. No evidence of tenderness throughout. Back: No spinal tenderness. No costovertebral tenderness. Full range of motion. Skin: Warm, dry with normal turgor. Normal color with no rashes, no lesions, and no evidence of cellulitis. MS/ Extremity: Pulses equal, no cyanosis. Neurovascular intact. Full, normal range of motion. Neuro: Awake and alert, GCS 15, oriented to person, place, time, and situation. Cranial nerves II-XII grossly intact. Motor strength 5/5 in all extremities. Sensory grossly intact. Cerebellar exam normal. Normal gait. Psych: Awake, alert, with orientation to person, place and time. Behavior, mood, and affect are within normal limits. 11:12 ENT: Rhinorrhea and nasal congestion noted coupled with dry cough.. Vital Signs: 10:20 BP 149 / 101; Pulse 108; Resp 16; Temp 98.7(O); Pulse Ox 100% ; Weight 102.06 kg; dd2 Height 5 ft. 2 in. ; 11:12 BP 141 / 93; Pulse 96; Resp 18; Pulse Ox 99% on R/A; ld1 12:16 BP 139 / 76; Pulse 99; Resp 18; Pulse Ox 100% on R/A; ld1 10:20 Body Mass Index 41.15 (102.06 kg, 157.48 cm) dd2 MDM: 10:08 Patient medically screened. sp3 11:12 Data reviewed: vital signs, nurses notes, lab test result(s), radiologic studies. ED sp3 course: 33-year-old female with upper respiratory infection type symptoms. Differential diagnosis includes URI, bronchitis, pneumonia, COVID-19, influenza, strep pharyngitis, other viral illness, among others. I am not highly suspicious of sepsis, shock, acute coronary syndrome, PE, TAD, or any other critical illness at this time. Disposition pending workup and patient course with probable discharge if workup is negative for anything substantial.. 12:27 ED course: Swabs are negative and chest x-ray is clean. Will place patient on sp3 antitussive agent and NSAID with follow-up to PCP as needed.. 07/27 10:44 Order name: SARS RAPID; Complete Time: 12:26 sp3 07/27 10:44 Order name: Flu; Complete Time: 12:26 sp3 07/27 10:44 Order name: Strep sp3 07/27 11:28 Order name: Throat Culture EDKS 07/27 10:44 Order name: CXR XRAY sp3 Administered Medications: No medications were administered Disposition Summary: 07/27/24 12:28 Discharge Ordered Notes: Location: Home sp3 Condition: Stable sp3 Diagnosis - Upper respiratory infection, viral syndrome sp3 Followup: sp3 - With: Private Physician - When: Upon discharge from the Emergency Department - Reason: Continuance of care Discharge Instructions: - Discharge Summary Sheet sp3 - Upper Respiratory Infection, Adult sp3 Forms: - Medication Reconciliation Form sp3 - Antibiotic Education sp3 - Prescription Opioid Use sp3 - Patient Portal Instructions sp3 - Leadership Thank You Letter sp3 Prescriptions: - Tessalon Perles 100 mg Oral Capsule - take 1 capsule ORAL route every 8 hours As needed; 15 capsule; Refills: 0, sp3 Product Selection Permitted - Diclofenac Sodium 75 mg Oral Tablet Sustained Release - take 1 tablet ORAL route 2 times per day; 30 tablet; Refills: 0, Product sp3 Selection Permitted Signatures: Dispatcher [employer] Marisa Perla MD MD sp3 MADELAINE, REESE, RN RN dd2 Corrections: (The following items were deleted from the chart) 10:45 10:45 Chest Single View+RAD.RAD.BRZ ordered. EDMS EDMS 10:45 10:45 SARS-COV-2 Antigen Rapid+I.LAB.BRZ ordered. EDMS EDMS 10:45 10:45 Influenza Screen (A \T\ B)+BA.LAB.BRZ ordered. EDMS EDMS 10:45 10:45 Group A Streptococcus Rapid Sc+BA.LAB.BRZ ordered. EDMS EDMS
[2024-07-27 12:49] VITALS: TEMP 98.7
[2024-07-27 12:58] VITALS: BP 139/76; O2SAT 100
--- NOTE | 2024-07-27 13:39 | RAD REPORT ---
EXAM DESCRIPTION: Danna Single View07/27/2024 1:04 pm CLINICAL HISTORY: uri / cough COMPARISON: No comparisons TECHNIQUE: Portable AP view of the chest. FINDINGS: Decreased inspiratory effort somewhat limits evaluation. The lungs are clear. No pneumoth orax or effusion. The cardiomediastinal contours are unremarkable. IMPRESSION: No acute cardiopulmonary process.
== END 2024-07-27 12:38 | disposition home or self-care (01) ==
LOC: ER 10:01
DX: J06.9 Acute upper respiratory infection, unspecified (principal); B34.9 Viral infection, unspecified; Z11.52 Encounter for screening for COVID-19
CPT/HCPCS: 36415; 71045; 87070; 87081; 87804; 87811; 99284

== ENCOUNTER 2025-03-12 14:47 | Emergency (ER) | payer OTHER, SELFPAY ==
--- OUTSIDE RECORDS SUMMARY | 2025-03-12 14:52 | XMS REPORT | Continuity of Care Document ---
Author Name Unknown Address [address] [facility] [place] [address] [facility] [place] Address [address] [facility] [place] [address] Care Team Providers Care Health And Safety Representative Name Role Phone HIRA RANDHAWA Primary Care Physician UnavailGLEN Yusuf Attending Clinician Unavailab Sharath DAWKINS, Glen Jain Attending Clinician [phone] BEAR CARDONA Attending Clinician Unavailable BEAR CARDONA Attending Clinician Unavailable Ryan John MD Attending Clinician [phone] Bear Cardona MD Attending Clinician [phone] KATIA ANDERSEN Attending Clinician Unavailable KATIA ANDERSEN Attending Clinician Unavailable WADE ODELL Attending Clinician Unavailable Wade Odell DO Attending Clinician [phone] LEONOR IVY Attending Clinician UnavailLeonor Olivo Attending Clinician [phone] LU GARZA Attending Clinician Unavailable Jose Liu MD Attending Clinician [phone] Hayes PASSENGER BRAKEMANLu Fulton Attending Clinician [phone] Doctor Unassigned, [place] [facility] Attending Clinician U GAVI Levy Attending Clinician Unavaila Gavi Soriano Attending Clinician [phone] PAPI DAVALOS Attending Clinician Unavailable CHARO, DR [place] Attending Clinician UnavailTOBY Woo Attending Clinician Unavailable RYAN JOHN Admitting Clinician Unavailable KATIA ANDERSEN Admitting Clinician Unavailable WADE ODELL Admitting Clinician Unavailable LEONOR IVY Admitting Clinician Unavaila PAPI Conteh Admitting Clinician Unavailable DR ALEKSANDRA MANCILLA Admitting Clinician Unavailab TOBY Mancia Admitting Clinician Unavailable Payers Payer Name Policy Type Policy Number Effective Date Expirati on Date Source [facility] [id number] 2022 00:00:00 [id number] 1960 00:00:00 Problems Condition Name Condition Details Condition Category Status Onset Date Resolution Date Last Treatment Date Treating Clinician Comments Source No known active problems No known active problems Disease [facility] Allergies, Adverse Reactions, Alerts Allergy Name Allergy Type Status Severity Reaction(s) Onset Date Inactive Date Treating Clinician Comments Source No Known Allergie s DA Active U 05-30 00:00: 00 [facility] No Known Drug Allergie s DA Active [facility] l (LUF/LI V/SA) NO KNOWN ALLERGIE S Drug Class Active [facility] Social History Social Habit Start Date Stop Date Quantity Comments Source Sexual orientation 2024-10-12 20:54:02 Homosexual (finding) [facility] Gender identity 2024-02-13 00:58:42 Identifies as [facility] ASSERTION Not Gabi Pradoann [facility] Exposure to SARS-CoV-2 (event) 2022-04-29 00:00:00 2022-05-09 09:21:00 Not sure [facility] Sex assigned at 1990 00:00:00 1990 00:00:00 [facility] Smoking Status Start Date Stop Date Source Never smoker [facility] (LUF/BILLY/SA) Tobacco smoking consumption unknown [facility] c Medications Ordered Medication Name Filled Medication Name Start Date Stop Date Current Medication? Ordering Clinician Indication Dosage Frequency Signature (SIG) Comments Components Source azithromyci n (Zithromax) 250 MG tablet azithromyci n (Zithromax) 250 MG tablet 2023-11 00:00: 00 10-17 23:59 :00 No Take 2 tablets by mouth 1 time each day for 1 day, THEN 1 tablet 1 time each day for 4 days. Gabi Pradoann [facility] iopamidol (ISOVUE 370-500 mL) injection 100 mL 2023-11 01:15: 00 10-11 01:06 :00 No [id number] 100mL 100 mL, Intravenou s, ONCE, 1 dose, On Wed10/10/24 at 1915, Routine [facility] ondansetron 4 mg disintegrat ing tablet 2023-11 00:00: 00 Yes [id number] 4mg Take 1 tablet by mouth every 8 (eight) hours as needed for Nausea and Vomiting (N/V). [facility] HYDROcodone -acetaminop hen (NORCO 5) 5-325 mg tablet 1 tablet 06-16 04:15: 00 06-16 04:12 :00 No 1{tbl} 1 tablet, Oral, ONCE, 1 dose, On Wed06/15/24 at 2315, BETO [facility] iopamidol (ISOVUE 370-500 mL) injection 100 mL 06-16 03:45: 00 06-16 03:45 :00 No [id number] 100mL 100 mL, Intravenou s, ONCE, 1 dose, On Deysi 06/15/24 at 2245, Routine [facility] ketorolac (TORADOL) injection 30 mg 06-16 02:45: 00 06-16 02:12 :00 No 30mg 30 mg, Slow IV Push, ONCE NOW, 1 dose, On Deysi 06/15/24 at 2145, Routine [facility] NaCl 0.9% (NS) bolus infusion 1,000 mL 06-16 02:45: 00 06-16 04:08 :00 No 1000mL at 999 mL/hr, 1,000 mL, IV Infusion, ONCE, 1 dose, On Deysi 06/15/24 at 2145, BETO [facility] ketorolac 10 mg tablet 06-15 00:00: 00 Yes [id number] 9102 10mg Take 1 tablet by mouth every 6 (six) hours as needed for Pain (scale 4-6). [facility] cyclobenzap rine 10 mg tablet 06-15 00:00: 00 Yes [id number] 9102 10mg Take 1 tablet by mouth 2 (two) times daily as needed for Muscle Spasms. [facility] azithromyci n 250 mg tablet 12-22 00:00: 00 Yes [id number] 250mg Take 1 tablet by mouth in the morning. [facility] methylPREDN ISolone (MEDROL, CASH,) 4 mg tablets 12-22 00:00: 00 Yes [id number] Take by mouth SEE-INSTRU CTIONS. follow package directions [facility] ketorolac (TORADOL) injection 30 mg 12-02 00:45: 00 12-02 01:25 :00 No 30mg 30 mg, Intramuscu lar, ONCE, 1 dose, On Wed12/01/23 at 1845, Routine [facility] HYDROcodone -acetaminop hen (NORCO 5) 5-325 mg tablet 1 tablet 12-02 00:30: 00 12-02 01:23 :00 No 1{tbl} 1 tablet, Oral, ONCE, 1 dose, On Wed12/01/23 at 1830, Routine [facility] ibuprofen 600 mg tablet -10 00:00: 00 Yes [id number] 3 600mg Take 1 tablet by mouth every 6 (six) hours as needed for Pain (scale 4-6). [facility] traMADoL 50 mg tablet 12-01 00:00: 00 Yes [id number] 50mg Take 1 tablet by mouth every 6 (six) hours as needed for Pain (scale 7-10). Indication s: acute pain [facility] predniSONE 20 mg tablet 05-10 00:00: 00 05-16 04:59 :00 No [id number] 40mg Take 2 tablets by mouth daily for 5 days. [facility] methocarbam oL (ROBAXIN) tablet 1,000 mg 05-09 16:30: 00 05-09 15:38 :00 No 1000mg 1,000 mg, Oral, ONCE, 1 dose, On 05/09/22 at 1130, BETO [facility] dexamethaso ne sod phos PF injection 10 mg 05-09 16:30: 00 05-09 15:38 :00 No 10mg 10 mg, Intramuscu lar, ONCE, 1 dose, On 05/09/22 at 1130, 1 mL [facility] ketorolac (TORADOL) injection 60 mg 05-09 16:30: 00 05-09 15:38 :00 No 60mg 60 mg, Intramuscu lar, ONCE, 1 dose, On 05/09/22 at 1130, BETO [facility] ibuprofen 800 mg tablet 05-09 00:00: 00 Yes [id number] 800mg Take 1 tablet by mouth every 8 (eight) hours as needed for Pain (scale 4-6). [facility] methocarbam oL 750 mg tablet 05-09 00:00: 00 Yes [id number] 750mg Take 1 tablet by mouth 4 (four) times daily as needed for Other (muscle spasm). [facility] ketorolac (TORADOL) injection 30 mg 03-04 05:00: 00 03-05 04:59 :00 No 30mg 30 mg, Intramuscu lar, Q6H, 4 doses, First dose on Wed03/04/22 at 0000, Last dose on Wed03/04/22 at 1800, Routine [facility] HYDROcodone -acetaminop hen (NORCO 5) 5-325 mg tablet 1 tablet 03-04 01:00: 00 03-04 00:16 :00 No 1{tbl} 1 tablet, Oral, ONCE, 1 dose, On Wed03/03/22 at 2000, BETO [facility] naproxen 500 mg tablet 03-03 00:00: 00 Yes [id number] 500mg Take 1 tablet by mouth every 12 (twelve) hours as needed for Pain (scale 4-6). [facility] traMADoL-ac etaminophen (ULTRACET) 37.5-325 mg per tablet 03-03 00:00: 00 03-11 04:59 :00 No [id number] 1{tbl} Take 1 tablet by mouth every 6 (six) hours as needed for Pain for up to 7 days. Indication s: acute pain [facility] ibuprofen 800 mg tablet 07-25 00:00: 00 Yes 800mg Take 1 tablet by mouth every 8 (eight) hours as needed for Temp > 38.5 C (PAIN). [facility] amoxicillin 500 mg capsule 07-25 00:00: 00 Yes 500mg Take 1 capsule by mouth 3 (three) times daily. [facility] neomycin-po lymyxin-hyd rocortisone 3.5-10,000- 1 mg/mL-unit/ mL-% otic susp 01-06 00:00: 00 Yes 3[drp] Place 3 Drops in left ear 4 (four) times daily. [facility] traMADOL (ULTRAM) 50 mg tablet 01-06 00:00: 00 Yes 50mg Take 1 tablet by mouth every 6 (six) hours as needed for Pain (scale 4-6). [facility] amoxicillin 875 MG / clavulanate 125 MG Oral Tablet amoxicillin 875 MG / clavulanate 125 MG Oral Tablet Yes [address] [facility] l (LUF/LI V/SA) azithromyci n 250 mg tablet azithromyci n 250 mg tablet Yes [address] [facility] bromphenira mine maleate 0.4 MG/ML / dextrometho rphan hydrobromid e 2 MG/ML / pseudoephed rine hydrochlori de 6 MG/ML Oral Solution bromphenira mine maleate 0.4 MG/ML / dextrometho rphan hydrobromid e 2 MG/ML / pseudoephed rine hydrochlori de 6 MG/ML Oral Solution Yes 7.5mL Q5.00H [facility] l (LUF/LI V/SA) prednisone 10 mg tablets in a dose pack prednisone 10 mg tablets in a dose pack Yes 1 [facility] (LUF/LI V/SA) Vital Signs Vital Name Observation Time Observation Value Comments S our Systolic blood pressure 2024-10-12 20:58:00 145 mm[Hg] [facility] Diastolic blood pressure 2024-10-12 20:58:00 76 mm[Hg] [facility] Heart rate 2024-10-12 20:58:00 82 [facility] Body temperature 2024-10-12 20:58:00 36.94 Sanna [facility] Respiratory rate 2024-10-12 20:58:00 18 /min [facility] Oxygen saturation in Arterial blood by Pulse oximetry 2024-10-12 20:58:00 96 /min [facility] BMI 2024-10-12 20:51:00 43.15 kg/m2 [facility] Body height 2024-10-12 20:51:00 157.5 cm [facility] Body weight 2024-10-12 20:51:00 107 kg [facility] Systolic blood pressure 2024-10-12 20:58:00 145 mm[Hg] [facility] Diastolic blood pressure 2024-10-12 20:58:00 76 mm[Hg] [facility] Heart rate 2024-10-12 20:58:00 82 /min [facility] Body temperature 2024-10-12 20:58:00 36.94 Sanna [facility] Respiratory rate 2024-10-12 20:58:00 18 /min Leena Muniz Oxygen saturation in Arterial blood by Pulse oximetry 2024-10-12 20:58:00 96 /min Leena armstrong [facility] BMI 2024-10-12 20:51:00 43.15 kg/m2 [facility] Body height 2024-10-12 20:51:00 157.5 cm Guruveronica Terrell [facility] Body weight 2024-10-12 20:51:00 107 kg Guruveronica Terrell [facility] Systolic blood pressure 2024-10-11 02:42:00 136 mm[Hg] [facility] Diastolic blood pressure 2024-10-11 02:42:00 78 mm[Hg] [facility] Heart rate 2024-10-11 02:42:00 80 /min Un[facility] Respiratory rate 2024-10-11 02:42:00 16 /min [facility] Oxygen saturation in Arterial blood by Pulse oximetry 2024-10-11 02:42:00 99 /min [facility] Body temperature 2024-10-11 00:42:00 36.61 Sanna [facility] Body height 2024-10-10 18:28:00 157.5 cm [facility] Body weight 2024-10-10 18:28:00 104.327 kg [facility] BMI 2024-10-10 18:28:00 42.07 kg/m2 [facility] Systolic blood pressure 2024-06-16 04:15:00 161 mm[Hg] [facility] Diastolic blood pressure 2024-06-16 04:15:00 99 mm[Hg] [facility] Heart rate 2024-06-16 04:15:00 89 /min [facility] Oxygen saturation in Arterial blood by Pulse oximetry 2024-06-16 04:15:00 98 /min [facility] Body temperature 2024-06-16 03:32:00 36.89 Sanna [facility] Respiratory rate 2024-06-16 03:32:00 16 /min [facility] Body height 2024-06-16 01:12:00 157.5 cm [facility] Body weight 2024-06-16 01:12:00 104.327 kg [facility] BMI 2024-06-16 01:12:00 42.07 kg/m2 [facility] Systolic blood pressure 2023-12-22 22:00:00 167 mm[Hg] [facility] Diastolic blood pressure 2023-12-22 22:00:00 90 mm[Hg] [facility] Heart rate 2023-12-22 22:00:00 105 /min Un[facility] Body temperature 2023-12-22 22:00:00 37.11 Sanna [facility] Respiratory rate 2023-12-22 22:00:00 18 /min [facility] Body height 2023-12-22 22:00:00 157.5 cm [facility] Body weight 2023-12-22 22:00:00 106.595 kg [facility] BMI 2023-12-22 22:00:00 42.98 kg/m2 [facility] Oxygen saturation in Arterial blood by Pulse oximetry 2023-12-22 22:00:00 100 /min [facility] Systolic blood pressure 2023-12-02 01:59:37 142 mm[Hg] [facility] Diastolic blood pressure 2023-12-02 01:59:37 94 mm[Hg] [facility] Heart rate 2023-12-02 01:59:37 104 /min Unive [facility] Body temperature 2023-12-02 01:59:37 37 Sanna [facility] Respiratory rate 2023-12-02 01:59:37 16 /min [facility] Oxygen saturation in Arterial blood by Pulse oximetry 2023-12-02 01:59:37 99 /min [facility] Body height 2023-12-01 23:07:00 157.5 cm [facility] 2023-12-01 23:07:00 107.729 kg [facility] BMI 2023-12-01 23:07:00 43.44 kg/m2 [facility] Systolic blood pressure 2022-05-09 14:22:00 157 mm[Hg] [facility] Diastolic blood pressure 2022-05-09 14:22:00 99 mm[Hg] [facility] Heart rate 2022-05-09 14:22:00 97 /min [facility] Body temperature 2022-05-09 14:22:00 36.94 Sanna [facility] Respiratory rate 2022-05-09 14:22:00 18 /min [facility] Body height 2022-05-09 14:22:00 160 cm [facility] Body weight 2022-05-09 14:22:00 104.327 kg [facility] BMI 2022-05-09 14:22:00 40.74 kg/m2 [facility] Oxygen saturation in Arterial blood by Pulse oximetry 2022-05-09 14:22:00 97 /min [facility] Systolic blood pressure 2022-03-04 00:15:10 138 mm[Hg] [facility] Diastolic blood pressure 2022-03-04 00:15:10 92 mm[Hg] [facility] Heart rate 2022-03-04 00:15:10 107 /min [facility] Respiratory rate 2022-03-04 00:15:10 18 /min [facility] Oxygen saturation in Arterial blood by Pulse oximetry 2022-03-04 00:15:10 98 /min [facility] Body temperature 2022-03-03 23:40:00 37.61 Sanna [facility] Body height 2022-03-03 23:40:00 160 cm [facility] Body weight 2022-03-03 23:40:00 99.791 kg [facility] BMI 2022-03-03 23:40:00 38.97 kg/m2 [facility] Height 2022-02-03 23:24:00 160.02 CM Weight 2022-02-03 23:24:00 100.69 KG Height 2021-11-11 13:42:00 160.02 CM Weight 2021-11-11 13:42:00 104.32 KG Height 2021-10-12 16:19:00 165.1 CM Weight 2021-10-12 16:19:00 95.25 KG Height 2021-08-17 14:59:00 157.48 CM Weight 2021-08-17 14:59:00 105.6 KG Height 2021-06-12 11:49:00 157.48 CM Weight 2021-06-12 11:49:00 104.32 KG Body Temperature 2022-02-03 23:24:00 99.2 [degF] [facility] (LUF/BILLY/SA) Pulse Rate 2022-02-03 23:24:00 82 /min [facility] (LUF/BILLY/SA) Respiratory Rate 2022-02-03 23:24:00 20 /min [facility] (F/BILLY/SA) O2% BldC Oximetry 2022-02-03 23:24:00 98 % [facility] (LUF/BILLY/SA) BP Systolic 2022-02-03 23:24:00 163 mm[Hg] [facility] (LUF/BILLY/SA) BP Diastolic 2022-02-03 23:24:00 100 mm[Hg] [facility] (LUF/BILLY/SA) Height 2022-02-03 23:24:00 63 [in_i] [facility] (LUF/BILLY/SA) Weight 2022-02-03 23:24:00 222 [lb_av] [facility] (LUF/BILLY/SA) BMI (Body Mass Index) 2022-02-03 23:24:00 39.3 kg/m2 [facility] (LUF/BILLY/SA) Body Temperature 2021-11-11 13:42:00 98.1 [degF] [facility] (LUF/BILLY/SA) Pulse Rate 2021-11-11 13:42:00 90 /min [facility] (LUF/BILLY/SA) Respiratory Rate 2021-11-11 13:42:00 18 /min [facility] (LUF/BILLY/SA) O2% BldC Oximetry 2021-11-11 13:42:00 98 % [facility] (LUF/BILLY/SA) BP Systolic 2021-11-11 13:42:00 147 mm[Hg] [facility] (LUF/BILLY/SA) BP Diastolic 2021-11-11 13:42:00 94 mm[Hg] [facility] (LUF/BILLY/SA) Height 2021-11-11 13:42:00 63 [in_i] [facility] (LUF/BILLY/SA) Weight 2021-11-11 13:42:00 104.32 kg [facility] (LUF/BILLY/SA) BMI (Body Mass Index) 2021-11-11 13:42:00 40.7 kg/m2 [facility] (LUF/BILLY/SA) Body Temperature 2021-10-12 16:19:00 98 [degF] [facility] (LUF/BILLY/SA) Pulse Rate 2021-10-12 16:19:00 78 /min [facility] (LUF/BILLY/SA) Respiratory Rate 2021-10-12 16:19:00 18 /min [facility] (LUF/BILLY/SA) O2% BldC Oximetry 2021-10-12 16:19:00 98 % [facility] (LUF/BILLY/SA) Height 2021-10-12 16:19:00 65 [in_i] [facility] (LUF/BILLY/SA) Weight 2021-10-12 16:19:00 210 [lb_av] [facility] (LUF/BILLY/SA) BMI (Body Mass Index) 2021-10-12 16:19:00 34.9 kg/m2 [facility] (LUF/BILLY/SA) Pulse Rate 2021-08-17 16:31:00 73 /min [facility] (LUF/BILLY/SA) Respiratory Rate 2021-08-17 16:31:00 18 /min [facility] (LUF/BILLY/SA) O2% BldC Oximetry 2021-08-17 16:31:00 99 % [facility] (LUF/BILLY/SA) BP Systolic 2021-08-17 16:31:00 122 mm[Hg] [facility] (LUF/BILLY/SA) BP Diastolic 2021-08-17 16:31:00 84 mm[Hg] [facility] (LUF/BILLY/SA) Body Temperature 2021-08-17 14:59:00 98.2 [degF] [facility] (LUF/BILLY/SA) Height 2021-08-17 14:59:00 62 [in_i] [facility] (LUF/BILLY/SA) Weight 2021-08-17 14:59:00 105.6 kg [facility] (LUF/BILLY/SA) BMI (Body Mass Index) 2021-08-17 14:59:00 42.8 kg/m2 [facility] (LUF/BILLY/SA) Body Temperature 2021-06-12 11:49:00 97.9 [degF] [facility] (LUF/BILLY/SA) Pulse Rate 2021-06-12 11:49:00 102 /min [facility] (LUF/BILLY/SA) Respiratory Rate 2021-06-12 11:49:00 20 /min [facility] (F/BILLY/SA) O2% BldC Oximetry 2021-06-12 11:49:00 100 % [facility] (LUF/BILLY/SA) BP Systolic 2021-06-12 11:49:00 129 mm[Hg] [facility] (LUF/BILLY/SA) BP Diastolic 2021-06-12 11:49:00 93 mm[Hg] [facility] (LUF/BILLY/SA) Height 2021-06-12 11:49:00 62 [in_i] [facility] (LUF/BILLY/SA) Weight 2021-06-12 11:49:00 230 [lb_av] [facility] (LUF/BILLY/SA) BMI (Body Mass Index) 2021-06-12 11:49:00 42.3 kg/m2 [facility] (LUF/BILLY/SA) Procedures Procedure Date / Time Performed Performing Clinicia n Source CT ABDOMEN PELVIS W CONTRAST 2024-10-11 01:10:00 Ryan John [facility] POCT TEST 2024-10-11 00:24:00 Ryan John [facility] URINALYSIS 2024-10-11 00:23:00 Ryan John [facility] LIPASE 2024-10-10 20:12:00 Ryan John [facility] COMP. METABOLIC PANEL (40205) 2024-10-10 20:12:00 Ryan John [facility] CBC WITH DIFF 2024-10-10 20:12:00 Ryan John [facility] POCT TEST 2024-06-16 02:12:00 Katia Andersen [facility] HEPATIC FUNCTION PANEL ([id number]) (ALB,T.PRO,BILI T,BU/BC,ALT,AST,ALK PHOS) 2024-06-16 02:09:00 Katia Andersen [facility] BASIC METABOLIC PANEL (NA, K, CL, CO2, GLUCOSE, BUN, CREATININE, CA) 2024-06-16 02:09:00 Katia Andersen [facility] CBC WITH DIFF 2024-06-16 02:09:00 Katia Andersen [facility] URINALYSIS 2024-06-16 02:09:00 Katia Andersen [facility] LIPASE 2023-12-22 22:56:00 Wade Odell [facility] MAGNESIUM 2023-12-22 22:56:00 [facility] TROPONIN I 2023-12-22 22:56:00 [facility] Odell [facility] COMP. METABOLIC PANEL ([id number]) 2023-12-22 22:56:00 Wade Odell [facility] CBC WITH DIFF 2023-12-22 22:56:00 Wade Odell [facility] N-TERMINAL PRO-BNP 2023-12-22 22:56:00 Singer Wade [facility] CONSENT/REFUSAL FOR DIAGNOSIS AND TREATMENT 2023-12-22 21:52:05 Doctor Unassigned, [place] [facility] POCT TEST 2023-12-02 01:22:00 Chris Ivy [facility] ASSIGNMENT OF BENEFITS 2023-12-02 00:37:04 Docto r Unassigned, [facility] XR KNEE <3 VW RIGHT 2023-12-02 00:37:00 Chris Ivy [facility] CONSENT/REFUSAL FOR DIAGNOSIS AND TREATMENT 2023-12-01 22:58:09 Doctor Unassigned, [place] [facility] CONSENT/REFUSAL FOR DIAGNOSIS AND TREATMENT 2022-05-09 14:04:54 Doctor Unassigned, [place] [facility] NOTICE OF PRIVACY PRACTICES 2022-03-03 23:32:43 Doctor Unassigned, [place] [facility] CONSENT/REFUSAL FOR DIAGNOSIS AND TREATMENT 2022-03-03 23:32:31 Doctor Unassigned, [place] [facility] Encounters Start Date/Time End Date/Time Encounter Type Admission Type Attending [facility] Facility Care Department Encounter ID Source 2024-10-12 20:46:00 2024-10-12 21:10:00 Emergency Emergency GLEN FLORENCE [facility] Medicine [id number] [facility] 2024-10-12 20:46:00 2024-10-12 21:10:00 [facility] [id number] [facility] 2024-10-10 12:29:00 2024-10-10 20:43:00 Emergency [place] [facility] ERT [id number] [facility] 2024-10-10 12:29:00 2024-10-10 20:43:00 Emergency Ryan John Kent [facility] [id number] [facility] 2024-06-15 20:14:00 2024-06-15 23:35:00 Emergency X PEACE NURYSKATIA MANZO [facility] ERT [id number] [facility] 2024-06-15 20:14:00 2024-06-15 23:35:00 Emergency Katia Andersen [place] [facility] [id number] [facility] 2023-12-22 16:08:00 2023-12-22 18:13:00 Emergency X SINGER WADE [facility] ERT [id number] [facility] 2023-12-22 16:08:00 2023-12-22 18:13:00 Emergency OdellWade [facility] [id number] [facility] 2023-12-01 17:08:00 2023-12-01 20:10:00 Emergency X LEONOR IVY [facility] ERT [id number] [facility] 2023-12-01 17:08:00 2023-12-01 20:10:00 Emergency Leonor Ivy [facility] [id number] [facility] 2022-05-09 09:23:00 2022-05-09 11:06:00 Emergency X LU GARZA [facility] ERT [id number] [facility] 2022-05-09 09:23:00 2022-05-09 11:06:00 Emergency Jose Liu Roxanne [facility] [id number] [facility] 2022-05-09 00:00:00 2022-05-09 00:00:00 Orders Only Doctor Unassigned, [place] [facility] [facility] [id number] [id number] [id number] [id number] [facility] 2022-03-03 18:41:00 2022-03-03 19:36:00 Emergency X GAVI [facility]CR[facility] ERT [id number] [facility] 2022-03-03 18:41:00 2022-03-03 19:36:00 [facility] [place] [id number] [id number] [id number] [facility] 2022-02-03 23:10:00 2022-02-04 00:45:00 ACUTE UP RESPIRATOR Y INFECTION UNS [address]L EMD [id number] [facility] 2022-02-03 00:00:00 2022-02-03 00:00:00 Inpatient [facility], [address], [place] [address] [facility] [id number] [facility] (LUF[facility]/SA) 2022-02-03 00:00:00 2022-02-03 00:00:00 Inpatient [facility], [address], [place] [address] [facility] [id number] [facility] (LUF/LI V/SA) 2021-11-11 13:29:00 2021-11-11 14:20:00 Emergency 1 [address]LLA [address]L EMD [id number] [facility] (LUF/LI V/SA) 2021-11-11 00:00:00 2021-11-11 00:00:00 Inpatient [facility] [address], [address], [address] [id number] [facility] (LUF/LI V/SA) 2021-10-12 15:53:00 2021-10-12 17:18:00 STRAIN MUSC FASC TENDON LW BACK INT [facility] GINA Jad, [address], [facility] [place], [facility], [address] [id number] [facility] (LUF/LI V/SA) 2021-10-12 00:00:00 2021-10-12 00:00:00 Inpatient [facility] [address], [address], [address] [id number] [facility] (LUF/LI V/SA) 2021-10-12 00:00:00 2021-10-12 00:00:00 Inpatient [facility] [address], [address], [address] [id number] [facility] (LUF/LI V/SA) 2021-10-12 00:00:00 2021-10-12 00:00:00 Inpatient [facility] [address], [address], [address] [id number] [facility] (LUF/LI V/SA) 2021-08-17 14:52:00 2021-08-17 17:00:00 CONTUSION LOWER BACK PELVIS INITIAL E [facility] Jad, [address], [address] [id number] [facility] (LUF/LI V/SA) 2021-08-17 00:00:00 2021-08-17 00:00:00 Inpatient [facility] [address], [address], [address] [place] [id number] [facility] 2021-08-17 00:00:00 2021-08-17 00:00:00 Inpatient [facility] [address], [address], [address] [id number] [facility] 2021-06-12 11:08:00 2021-06-12 16:13:00 CHRONIC SINUSITIS UNSPECIFIE TOBY CLARK [facility] [address], [address], [address] [id number] [facility] 2021-06-12 00:00:00 2021-06-12 00:00:00 Inpatient [facility] [address], [address], [address] [place] [id number] [facility] 2021-06-12 00:00:00 2021-06-12 00:00:00 Inpatient [facility] [address], [address], [address] [id number] [facility] (LUF/LI V/SA) Results Test Description Test Time Test Comments Results Result Comments Source CT ABDOMEN PELVIS W CONTRAST 01:17:25 EXAM: CT ABDOMEN PELVIS W CONTRAST ORDERING PROVIDER: RYAN JOHN HISTORY: 33 years-old Female; Ordered Indication: Abdominal pain, acute,nonlocalized . TECHNIQUE: Contiguous axial imaging from the level of the lung basesthrough the proximal thighs was performed with intravenous contrast.Coronal and sagittal reconstructions were obtained. COMPARISON: CT abdomen pelvis obtained on 06/15/2024 FINDINGS: LOWER THORAX: The lung bases are clear. LIVER: No suspicious hepatic lesion is seen. Steatosis is again seen. Theliver is enlarged over 20 cm in the craniocaudal dimension. GALLBLADDER AND BILIARY TREE: The gallbladder appears unremarkable. Nobiliary ductal dilatation is visualized. SPLEEN: The spleen is normal in size. PANCREAS: No ductal dilation or solid mass is visualized. ADRENAL GLANDS: No mass is seen. KIDNEYS/URETER/BLADDER: No stone, hydronephrosis, or suspicious mass isvisualized. The bladder is decompressed. PELVIC ORGANS: No suspicious pelvic mass is seen. GI TRACT: No obstruction is seen. The appendix appears unremarkable. Mildgastroesophageal reflux is suspected. PERITONEUM AND RETROPERITONEUM: No intra-abdominal free air or fluidcollection is visualized. LYMPH NODES: No suspicious lymphadenopathy is seen. VESSELS: The vessels are patent. BONES AND SOFT TISSUES: No suspicious osseous lesion is seen. 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 [facility] (NA, K, CL, CO2, GLUCOSE, BUN, CREATININE, CA)2024-06-16 03:09:51* Test Item Value Reference Range Interpretation Comme nts NA (test code = 9512522671) 135 mmol/L 135-145 K (test code = 4717543054) 4.0 mmol/L 3.5-5.0 CL (test code = 2562718674) 105 mmol/L 98-108 CO2 TOTAL (test code = 6481858409) 23 mmol/L 23-31 AGAP (test code = 8492081229) 7 2-16 BUN (test code = 9545585368) 12 mg/dL 7-23 GLUCOSE (test code = 8402312948) 118 mg/dL 70-110 H CREATININE (test code = 2160-0) 0.77 mg/dL 0.50-1.04 CALCIUM (test code = 6061603441) 9.2 mg/dL 8.6-10.6 eGFR (test code = 23050-6) 104.0 mL/min/1.73m2 CKD-EPI eGFR (2020). Assuming creatinine has been stable day-to-day for at least three months, the eGFR indicates Category G1 (>= 90 mL/min/1.73 m2) Lab Interpretation (test code = 16965-2) Abnormal [facility] (ALB,T.PRO,BILI T,BU/BC,ALT,AST,ALK PHOS)2024-06-16 02:52:08* Test Item Value Reference Range Interpretation Comme nts TOTAL BILI (test code = 8747574367) 0.6 mg/dL 0.1-1.1 BILI UNCON (test code = 7974688973) 0.0 mg/dL 0.1-1.1 L BILI CONJ (test code = 1998342135) 0.0 mg/dL 0.0-0.3 T PROTEIN (test code = 0514308036) 8.0 g/dL 6.3-8.2 ALBUMIN (test code = 8028178842) 4.2 g/dL 3.5-5.0 ALK PHOS (test code = 5292736654) 72 U/L 34-122 ALTv (test code = 1742-6) 50 U/L 5-35 H AST(SGOT) (test code = 1632188708) 39 U/L 13-40 Lab Interpretation (test cod e = 66539-9) Abnormal [facility]eville[facility] WITH [id number] 02:36:09* Test Item Value Reference Range Interpretation [...] 32.8 g/dL 31.6-35.1 RDW-SD (test code = 41936-3) 42.1 fL 39.0-49.9 RDW-CV (test code = 788-0) 13.2 % 12.0-15.5 PLT (test code = 777-3) 379 166-358 H MPV (test code = 55457-9) 9.4 fL 9.5-12.9 L NRBC/100 WBC (test code = 5662151821) 0.0 0.0-10.0 NRBC x10^3 (test code = 1938209688) See_Comment [Automated message] The system which generated this result transmitted reference range: 10*3/?L. The reference range was not used to interpret this result as normal/abnormal. GRAN MAT (NEUT) % (test code = 770-8) 70.8 % IMM GRAN % (test code = 8645678498) 0.70 % LYMPH % (test code = 736-9) 21.0 % MONO % (test code = 5905-5) 5.1 % EOS % (test code = 713-8) 1.9 % BASO % (test code = 706-2) 0.5 % GRAN MAT x10^3(ANC) (test code = 1270715128) 10.74 10*3/uL 1.88-7.09 H IMM GRAN x10^3 (test code = 5463357150) 0.11 10*3/uL 0.00-0.06 H LYMPH x10^3 (test code = 731-0) 3.18 10*3/uL 1.32-3.29 MONO x10^3 (test code = 742-7) 0.77 10*3/uL 0.33-0.92 EOS x10^3 (test code = 711-2) 0.29 10*3/uL 0.03-0.39 BASO x10^3 (test code = 704-7) 0.08 10*3/uL 0.01-0.07 H Lab Interpretation (test code = 85184-1) Abnormal [facility]evillePO[facility] [id number] 02:12:00* Test Item Value Reference Range Interpretation Comme nts POCT PREG (test code = 1605) Negative On board controls acceptable with C Line (test code = 3574) Yes Lab Interpretation (test cod e = 80236-3) Normal [facility]evilleXR KNEE <3 VW [id number] 01:59:38Exam: Left knee, 12/01/2023 6:45 PM. Ordering Physician: LEONOR IVY. History: Left knee pain. Technique: Left knee 2 views Technical Quality: Adequate. Comparison: None. Findings: No acute fracture. No dislocation. No joint effusion. No radiopaque foreignbody. ?Unremarkable soft tissue structures. [facility]evillePO[facility] [id number] 01:22:00* Test Item Value Reference Range Interpretation Comme nts POCT PREG (test code = 1605) Negative On board controls acceptable with C Line (test code = 3574) Yes POCT PREG LOT # (test code = 3575) [id number] POCT PREG TEST DATE ( test code = 3576) 01/30/2025 Lab Interpretation (test cod e = 07029-7) Normal [facility]evilleFLU [id number] 00:16:00* Test Item Value Reference Range Interpretation [...] upon request. ldh STLMLXR CHEST 2 PA [id number] 00:14:29 [facility])Name: SITA MYLES : 1990 Sex: FEXAMINATION: XR CHEST 2 PA LATERALINDICATION: R07.1: CHEST PAIN ON BREATHINGCOMPARISON: June 12, 2021 radiographFINDINGS:TUBES and LINES: None.LUNGS: Normal lung volumes. Lungs are clear. No consolidations.PLEURA: No pleural effusion or pneumothorax.HEART AND MEDIASTINUM: The cardiomediastinal silhouette is unremarkable.BONES AND SOFT TISSUES: No acute osseous lesion. Soft tissues areunremarkable.UPPER ABDOMEN: No free air under the diaphragm.IMPRESSION:No acute thoracic radiographic a bnormality.This final report was electronically signed by Dr Maribel Holley 02/04/2022 12:08 AMDictatedBy: MARIBEL HOLLEYDate: 02/04/2022 00:08STLMLXR LUMBAR SPINE (AP/LATERAL)2021-08-17 16:43:37 [facility]/)Name: SITA MYLES : 1990 Sex: FLumbar Spine Radiographs: multiple viewsHISTORY: [id number]: Traumatic qgiajm058.61486.6NCOM PARISON: None available.DISCUSSION:There are five non-rib bearing lumbar vertebral bodies.The alignment of the spine is within normal limits.No displaced fracture or compression deformity is identified.Disc Spaces:The disc spaces are well maintained.Facets:The facet joints are unremarkable.IMPRESSION:No acute radiographic abnormality.If symptoms persist or progress, please consider followup studyor furtherevaluation with MRI without IV contrast.This final report was electronically signed by Rebecca Shi 08/17/2021 4:38 PMDictated By: REBECCA SHIDate: 08/17/2021 16:38STLMLPREGNANCY TEST, Urine Qualitative 2021-08-17 15:21:00* Test Item Value Reference Range Interpretation Comme nts (Urine) (test code = PREGU) Negative STLMLCORONAVIRUS 2019 CEPHEID [id number] 15:15:00* Test Item Value Reference Range Interpretation Comme nts FT (test code = COVID) Negative (qualifier value) The CepUniversity of [place]ed SARS-CoV -2 reagent is for in vitro use under FDA Emergency Use Authorization only. For questions regarding your test results, please contact the Coronavirus Call Center at [phone]. IN-HOUSE TESTINGSTLMLXR CHEST AP/PA 1 [id number] 14:40:37 [facility])Name: SITA MYLES : 1990 Sex: FExam: AP portable chestDATE OF EXAM: 06/12/2021 2:12 PMINDICATION: CoughThe lungs are clear. The cardiomediastinal silhouette is within normal limits.The bony thorax shows no significant abnormality.Impression:No active cardiopulmonary disease.This final report was electronically signed by Dr González Garcia MD 12:35 PMDictated By: GONZÁLEZ GARCIADate: 06/12/2021 14:35STLMLURINALYSIS WITH [id number] 14:19:00* Test Item Value Reference Range Interpretation Comme nts Color (test code = UCOLR) Yellow Clarity (test code = UCLAR) Hazy Glucose (test code = UGLUC) NEGATIVE NEGATIVE N Bilirubin (test code = UBILI) NEGATIVE NEGATIVE N Ketones (test code = UKET) NEGATIVE NEGATIVE N Specific [place] (test code = USPGR) >=1.030 1.005-1.030 A [...] URCRYS) Moderate Amorphous Urates None Seen A [id number] 14:07:00* Test Item Value Reference Range Interpretation [...] of chronic kidney failure. STLMLPREGNANCY TEST, Urine Vgybbcrvyoz6448-67-93 13:49:00* Test Item Value Reference Range Interpretation Comme nts (Urine) (test code = PREGU) Negative STLMLCBC WITH AUTO [id number] 13:20:00* Test Item Value Reference Range Interpretation [...] Test Item Value Reference Range Interpretation Comme [facility] PROCALCITONIN (PCT) (test code = PROCAL) 0.05 [...] taking into account the patients history. LACTIC [id number] 17:41:00* Test Item Value Reference Range Interpretation Comme nts LACTIC ACID (test code = LACT) 1.6 mmol/L 0.4-1.9 N MONO [id number] 17:33:00* Test Item Value Reference Range Interpretation Comme nts MONO SCREEN (test code = MONO) NEGATIVE NEGATIVE - XR CHEST 2 [id number] 17:31:00FAX: Debra Dejesus NP [place]: St: REG Name: SHARSITA [facility] : 1990 Age/S: 28/F [address] [facility] Unit #: [id number] Loc: [place] [address] Phys: Debra Dejesus NP Acct: [id number] DisDate: Status: REG ER PHONE #: [phone] Exam Date: 05/30/2019 1719 FAX #: [phone] Reason: fever EXAMS: CPT CODE: [id number] XR CHEST 2 V 20370 REASON FOR EXAM: fever Exam Order Date: 05/30/2019 4:35 PM Ordering Ramakrishna: Debra Dejesus NP PROCEDURE: - XR CHEST 2 V COMPARISON: FINDINGS: PA and lateral views of the chest show clear lungs without evidence of consolidation. No evidence of effusion.The heart size is within normal limits. Pulmonary vasculatures are unremarkable. The osseous structures are grossly intact. IMPRESSION: No active disease. at 1731 Reported and signed by: Yannick Barrientos M.D. CC: Debra Dejesus NP Technologist: Avril Isabel) [facility] Date/Time/By: 05/30/2019 (602) : By: Sheba Orig Print D/T: S: 05/30/2019 (7536) PAGE 1 Signed Report- XR CHEST 2 [id number] 17:31:00FAX: Debra Dejesus NP [place]: St: REG Name: SITA MYLES [facility] : 1990 Age/S: 28/F [address] Unit #: [id number] Loc: [place] [address] Phys: Debra Dejesus NP Acct: [id number] DisDate: Status: REG ER PHONE #: [phone] Exam Date: 05/30/2019 1719 FAX #: [phone] Reason: fever EXAMS: CPT CODE: [id number] XR CHEST 2 V 92954 REASON FOR EXAM: fever Exam Order Date: 05/30/20194:35 PM Ordering Ramakrishna: Debra Dejesus NP PROCEDURE: - XR CHEST [...] CC: Debra Dejesus NP Technologist: Avril Isabel) Trnscrd Date/Time/By: 05/30/2019 (709) : By: Sheba Orig Print D/T: S: 05/30/2019 (6337) PAGE 1 Signed Report- XR CHEST 2 [id number] 17:31:00FAX: Debra Dejesus NP [place]: St: REG Name: SITA MYLES [facility] : 1990 Age/S: 28/F [address] Unit #: [id number] Loc: [place] [address] Phys: Debra Dejesus NP Acct: [id number] DisDate: Status: REG ER PHONE #: [phone] Exam Date: 05/30/2019 1719 FAX #: [phone] Reason: fever EXAMS: CPT CODE: [id number] XR CHEST 2 V 46625 REASON FOR EXAM: fever Exam Order Date: 05/30/2019 4:35 PM Ordering Ramakrishna: Debra Dejesus NP PROCEDURE: - XR CHEST 2 V COMPARISON: FINDINGS: PA and lateral views of the chest show clear lungs without evidence of consolidation. No evidence of effusion. The heart size is within normal limits. Pulmonary vasculatures are unremarkable. The osseous stru ctures are grossly intact. IMPRESSION: No active disease. at 1738 Reported and signed by: Yannick Barrientos M.D. CC: Debra Dejesus NP Technologist:Avril Isabel) Trnscrd Date/Time/By: 05/30/2019 (6149) : By: Sheba Orig Print D/T: S: 05/30/2019 (9502) PAGE 1 Signed ReportPOC LACTIC [id number] 17:18:00* Test Item Value Reference Range Interpretation Comme nts POC LACTIC ACID (test code = POCLAC) 1.51 MMOL/L 0.4-2.2 N POC LACTIC [id number] 17:18:00* Test Item Value Reference Range Interpretation Comme nts POC LACTIC ACID (test code = POCLAC) 1.51 MMOL/L 0.4-2.2 N Notes Date/Time Note Provider Source 2024-10-12 21:10:45 [facility] Suicide Severity Rating Scale (Screener/Recent Self-Report) Question Answer Date of Assessment Author 1. Wish to be (Past 1 Month) No 024 8:56 PM Karma Breaux, RN 2. 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 Suicidal Behavior (Lifetime) No 8:56 PM Karma Breaux RN [facility]sb[facility]46[facility]28[facility]93 21:10:45 [facility] CenterOpxcxdb9780-71-03 21:10:45 Diagnosis Bullous myringitis of left e ar - Primary [facility] CenterYaoqevr9594-60-60 21:10:45 [facility] CenterHffyyqa7716-74-62 20:34:00 History of Present Illness: Chief Complaint: Patient presents with Earache Left 33-year-old female presents emergency room with complaint of left-sided ear discomfort. States that she has had a decrease in hearing. Incontinence and itching of her ear she feels it might be a foreign body. Patient History No past medical history on file. No past surgical history on file. No family history on file. Social History: Tobacco Use Smoking status: Not on file Smokeless tobacco: Not on file Vaping Use Vaping status: Every Day Substance Use Topics Alcohol use: Not on file Drug use: Not on file Review of Systems: Review of Systems Physical Exam: Vitals and nursing note reviewed. Constitutional: General: She is not in acute distress. Appearance: She is well-developed. HENT: Head: Normocephalic and atraumatic. Ears: Comments: Left side is without foreign body but does show evidence of bullous myringitis. There is tympanic membranes swelling. Bulging and erythema. As well as bullous on the tympanic membrane. Eyes: Conjunctiva/sclera: Conjunctivae normal. Cardiovascular: Rate and Rhythm: Normal rate and regular rhythm. Heart sounds: No murmur heard. Pulmonary: Effort: Pulmonary effort is normal. No respiratory distress. Breath sounds: Normal breath sounds. Abdominal: Palpations: Abdomen is soft. Tenderness: There is no abdominal tenderness. Musculoskeletal: General: No swelling. Cervical back: Neck supple. Skin: General: Skin is warm and dry. Capillary Refill: Capillary refill takes less than 2 seconds. Neurological: Mental Status: She is alert. Psychiatric: Mood and Affect: Mood normal. Triage Vitals: BP: 145/85, Heart Rate: 81, Temp: 36.9 ?C (98.5 ?F), Resp: 18, SpO2: 97 %, Height: 157.5 cm (5' 2"), Weight: 107 kg (235 lb 14.3 oz) Last Recorded Vitals: BP: 145/85, Heart Rate: 81, Temp: 36.9 ?C (98.5 ?F), Resp: 18, SpO2: 97 %, Height: 157.5 cm (5' 2"), Weight: 107 kg (235 lb 14.3 oz) Procedures Performed: Procedures ED Course : Diagnoses as of 10/12/242054 Bullous myringitis of left ear Disposition: Discharge Medical Decision Making No foreign body seen. Bullous myringitis on the left ear will start patient on antibiotics recommend follow-up to ear nose and throat. [employer]oring [employer] [place] MD 10/12/242054 [facility]2024-11-19 20:43:25 Patient given discharge instructions with readback, discussed prescriptions and follow up care. IV removed and intact. Steady gait with NAD noted. NTO Rousseau RNProtestant HospitalNvaxlk4277-13-58 19:05:32 [facility] ED Transfer of Care Note. Off-going Physician:lanette Time of Transfer of Care: 7:05 PM Summary: Sita Myles is a 33 year old female presenting with chief complaint of diarrhea, vomiting, abdominal pain. Pending prior to disposition: Imaging Current interventions: Medications iopamidol (ISOVUE 370-500 mL) injection 100 mL (100 mL Intravenous Given 10/10/24 190) Results: Labs Reviewed CBC WITH DIFF - Abnormal; Notable for the following components: Result Value PLT 368 (*) MPV 8.9 (*) GRAN MAT x103(ANC) 7.15 (*) All other components within normal limits COMP. METABOLIC PANEL (75906) - Abnormal; Notable for the following components: ALTv 78 (*) AST(SGOT) 56 (*) All other components within normal limits URINALYSIS - Abnormal; Notable for the following components: APPEARANCE Cloudy (*) PROTEIN 30 mg/dL (*) WBC/HPF 6 (*) BACTERIA Few (*) MUCOUS Moderate (*) SQ EPITH 6 (*) All other components within normal limits LIPASE - Normal POCT TEST - Normal CT ABDOMEN PELVIS W CONTRAST Final Result No acute findings. Procedures: Procedures Additional Notes: Diagnosis/Impression as of 10/10/242004 Nausea and vomiting, unspecified vomiting type Medical Decision Making Ct negative, discharge with zofran, follow up outpatient Problems Addressed: Nausea and vomiting, unspecified vomiting type: complicated acute illness or injury Amount and/or Complexity of Data Reviewed Labs: ordered. Radiology: ordered. Decision-making details documented in ED Course. Risk Prescription drug management. Disposition: Discharged Home Social Determinants of Health: None ED Disposition ED Disposition Discharge Condition Stable Comment -- [facility]2024-11-19 18:30:00 Patient c/o N/V/D x 2 days. General Malaise. Cramping abdominal pain. Became concerned when stool became black in color. NTO Wood [facility]89[facility]54 12:27:34 Sita Myles is a 33 year old female presenting to the ED today for: Chief Complaint Patient presents with Vomiting Diarrhea Pt reports symptoms x2 days. Pt did take pepto bismol with no relief of symptoms. Pt reports now stools are black. Intermittent chills, denies measured fevers. - No past medical history on file. 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 Mary Navarro [place] 706834-07-25 20:11:02 Started with right flank pain that has radiated to abdomen. Pain started earlier today. Denies blood in urine, complains of pain with urination. Saira Green [place] [id number] 18:12:52 PT D/C home. GCS15, VS stable, no ataxia noted. Given two prescriptions and D/C paperwork. S/S relieved at this time. Pt ambulatory with family at time of discharge. Pt educated on musculoskeletal pain, med usage, follow up care, s/s worsening condition. Pt verbalized understanding. PIV removed. 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 Pain is not reproducible. EKG preformed in triage. NTO Williamson [facility]Xtvbfh4682-45-63 20:05:00 Pt given printed and verbal discharge [...] with steady gait, in no apparent distress, NTO Barrientos [facility]Jrbrtr1603-68-80 17:06:49 Pt arrived via private car with c/o left knee pain that started today when she bent over at work. 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 Denies pmh. Ambulatory to exam room in [facility]. 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 Denies pmh. Ambulatory to exam room in [facility]. Review of Systems ROS Statements All systems [...] Pulse Ox 97 05/30 1633 B/P 167/91 07/09 1633 B/P Mean 116 05/30 1633 O2 Delivery Room air 05/30 1633 Temp 38.9 05/30 1633 Pulse 123 05/30 1633 Resp 18 05/30 1633 Last Documented: Result Date Time Temp 37.6 05/30 1730 Pulse 110 07 1730 Resp 16 05/30 1730 Pulse Ox [...] MG X1ED STA 05/30 1634 DC 05/30 PO 05/30 1635 1654 Electrolytic, Caloric, And Nicole Sig/Isma Start time Last Medication Dose Route Stop Time Status Admin Sodium Chloride 1,000 ML X1ED STA 05/30 1634 DC / IV 05/30 1733 1651 Patient Discharge Departure [...] Saw Pt Alone I have reviewed the PA/CLINICAL NURSE OCCUPATIONAL MEDICINE's note and plan of care. I was available for consultation as needed at all times during the patient's visit in the emergency department. I agree with the clinical impression, plan and disposition. at 0418 at 1755 RPT #:[id number] [facility]
[2025-03-12] MEDS ORDERED: KETOROLAC 30 MG/ML INJ ONE (15:31)
--- NOTE | 2025-03-12 15:56 | RAD REPORT ---
Exam:Knee Right 3 View HISTORY: Right knee pain FINDINGS: No fracture or dislocation seen Soft tissue swelling is present. Mild osteoarthritis medial compartment If the patient continues to have symptoms to suggest an occult fracture, ligamentous or meniscal inju ry then MRI would be recommended
--- NOTE | 2025-03-12 16:30 | ER ---
Nurse's Notes [facility] Name: Sita Leong Age: 34 yrs Sex: Female : 1990 Arrival Date: 03/12/2025 Time: 14:47 Bed 25 Private MD: Diagnosis: Contusion of right knee Presentation: 03/12 15:08 Chief complaint: Patient states: I was in my apartment and tripped landing on my right jb4 knee. The is a 05/01. Coronavirus screen: At this time, the client does not indicate any symptoms associated with coronavirus-19. Ebola Screen: No symptoms or risks identified at this time. Initial Sepsis Screen: Does the patient meet any 2 criteria? HR > 90 bpm. Yes Does the patient have a suspected source of infection? No. Patient's initial sepsis screen is negative. Risk Assessment: Do you want to hurt yourself or someone else? Patient reports no desire to harm self or others. Onset of symptoms was March 12, 2025. Transition of care: patient was not received from another setting of care. 15:08 Method Of Arrival: Ambulatory jb4 15:08 Acuity: NAKITA 4 jb4 Triage Assessment: 15:09 General: Appears in no apparent distress. comfortable, Behavior is calm, cooperative, jb4 appropriate for age. Pain: Complains of pain in right knee Pain does not radiate. Pain currently is 6 out of 10 on a pain scale. Quality of pain is described as aching, throbbing. Neuro: Level of Consciousness is awake, alert, obeys commands, Oriented to person, place, time, situation. Cardiovascular: Patient's skin is warm and dry. Respiratory: Airway is patent Respiratory effort is even, unlabored, Respiratory pattern is regular, symmetrical. Derm: Skin is intact, Skin is pink, warm \T\ dry. Musculoskeletal: Circulation, motion, and sensation intact. Range of motion: limited in right knee. 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 - Infectious Disease History:: Denies. - Social history:: Smoking status: Reported history of juuling and/or vaping. - Family history:: not pertinent. Screenin:11 [facility] ED Fall Risk Assessment (Adult) History of falling in the last 3 months, jb4 including since admission Yes- single mechanical fall (1 pt) Confusion or Disorientation No (0 pts) Intoxicated or Sedated No (0 pts) Impaired Gait No (0 pts) Mobility Assist Device Used No (0 pt) Altered Elimination No (0 pt) Score/Fall Risk Level 0 - 2 = Low Risk Oriented to surroundings, Maintained a safe environment. Abuse screen: Denies threats or abuse. Nutritional screening: No deficits noted. Tuberculosis screening: No symptoms or risk factors identified. Assessment: 15:11 Reassessment: see triage note. jb4 16:57 Reassessment: Patient appears in no apparent distress at this time. Patient and/or jb4 family updated on plan of care and expected duration. Pain level reassessed. Patient is alert, oriented x 3, equal unlabored respirations, skin warm/dry/pink. Vital Signs: 15:08 BP 144 / 96; Pulse 96; Resp 16; Temp 99(O); Pulse Ox 99% on R/A; Weight 102.06 kg (R); jb4 Height 5 ft. 2 in. (R); Pain 6/10; 15:08 Body Mass Index 41.15 (102.06 kg, 157.48 cm) jb4 15:08 Pain Scale: Adult jb4 ED Course: 14:55 Patient arrived in ED. cj3 14:55 Arnie Winter MD is Attending Physician. rt 15:09 Triage completed. jb4 15:09 Arm band placed on right wrist. jb4 15:11 Patient has correct armband on for positive identification. Bed in low position. Call jb4 light in reach. Side rails up X 1. Provided Education on: plan. 15:49 Knee Right 3 View XRAY In Process Unspecified. EDMS 16:57 No provider procedures requiring assistance completed. Patient did not have IV access jb4 during this emergency room visit. Administered Medications: 15:44 Drug: Ketorolac IM 30 mg IM once Route: IM; Site: left gluteus; jb4 16:17 Follow up: Response: No adverse reaction jb4 Medication: 15:11 VIS not applicable for this client. jb4 Outcome: 16:29 Discharge ordered by . rt 16:57 Discharged to home ambulatory, jb4 16:57 Condition: stable 16:57 Discharge instructions given to patient, Instructed on discharge instructions, follow up and referral plans. Demonstrated understanding of instructions, follow-up care, 16:59 Patient left the ED. jb4 Signatures: Dispatcher [employer] Tre Valencia RN RN jb4 Arnie Winter MD MD rt Tayla Jennings cj3
--- NOTE | 2025-03-12 16:30 | EDPHYS ---
Physician Documentation [facility] Name: Sita Leong Age: 34 yrs Sex: Female : 1990 Arrival Date: 03/12/2025 Time: 14:47 Bed 25 Private MD: ED Physician Arnie Winter HPI: 03/12 16:49 This 34 yrs old Female presents to ER via Ambulatory with complaints of Fall rt Injury, Knee Injury. 16:49 Patient presents to the ED with an injury to the right knee 2 days ago, patient states rt that she tripped and fell landing onto the knee. Reports bruising to the area. Has been able to put weight on the leg with pain. Denies other acute complaints at this time, symptoms are moderate severity, aching nature, nonradiating, no other aggravating alleviating factors.. 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 - Infectious Disease History:: Denies. - Social history:: Smoking status: Reported history of juuling and/or vaping. - Family history:: not pertinent. ROS: 16:49 Constitutional: Negative for fever, chills, and weight loss, Skin: Negative for injury, rt rash, and discoloration, Neuro: Negative for headache, weakness, numbness, tingling, and seizure, Psych: Negative for depression, anxiety, suicide ideation, homicidal ideation, and hallucinations, 16:49 MS/extremity: Positive for contusion, pain, Exam: 16:49 Constitutional: This is a well developed, well nourished patient who is awake, alert, rt and in no acute distress. Head/Face: Normocephalic, atraumatic. Neuro: Awake and alert, GCS 15, oriented to person, place, time, and situation. Cranial nerves II-XII grossly intact. Motor strength 5/5 in all extremities. Sensory grossly intact. Cerebellar exam normal. Normal gait. Psych: Awake, alert, with orientation to person, place and time. Behavior, mood, and affect are within normal limits. 16:49 Musculoskeletal/extremity: Contusion with tenderness to the right knee, no deformities noted, pulses, motor, sensation intact. Vital Signs: 15:08 BP 144 / 96; Pulse 96; Resp 16; Temp 99(O); Pulse Ox 99% on R/A; Weight 102.06 kg (R); jb4 Height 5 ft. 2 in. (R); Pain 6/10; 15:08 Body Mass Index 41.15 (102.06 kg, 157.48 cm) jb4 15:08 Pain Scale: Adult jb4 MDM: 15:19 Medical Screening Exam initiated rt 16:49 Differential diagnosis: Contusion, fracture. Data reviewed: vital signs, nurses notes, rt radiologic studies. Independent interpretation of the following test(s) in the Emergency Department X-Ray: My interpretation is No fracture seen interpretation of x-ray images. Counseling: I had a detailed discussion with the patient and/or guardian regarding the historical points, exam findings, and any diagnostic results supporting the discharge/admit diagnosis, radiology results, the need for outpatient follow up. Response to treatment: the patient's symptoms have markedly improved after treatment. 03/12 15:26 Order name: Knee Right 3 View XRAY; Complete Time: 15:58 rt Administered Medications: 15:44 Drug: Ketorolac IM 30 mg IM once Route: IM; Site: left gluteus; jb4 16:17 Follow up: Response: No adverse reaction jb4 Disposition Summary: 03/12/25 16:29 Discharge Ordered Notes: Location: Home rt Problem: new rt Symptoms: have improved rt Condition: Stable rt Diagnosis - Contusion of right knee rt Followup: rt - With: Private Physician - When: 2 - 3 days - Reason: Discharge Instructions: - Discharge Summary Sheet rt - Contusion rt - Acute Knee Pain, Adult rt Forms: - Medication Reconciliation Form rt - Antibiotic Education rt - Prescription Opioid Use rt - Patient Portal Instructions rt - Leadership Thank You Letter rt Signatures: Dispatcher [employer] Tre Valencia RN RN jb4 Arnie Winter MD MD rt Corrections: (The following items were deleted from the chart) 15:26 15:26 Knee Right 3 View+RAD.RAD.[email or web address] ordered. EDWA EDMS
[2025-03-12 18:05] VITALS: BP 144/96; TEMP 99; O2SAT 99
== END 2025-03-12 16:59 | disposition home or self-care (01) ==
LOC: ER 14:47
DX: S80.01XA Contusion of right knee, initial encounter (principal)
CPT/HCPCS: 96372; 99284